=== PATIENT | female | born 1960 | race Hispanic/Latino ===

== ENCOUNTER → 2019-01-14 | Day surgery (SDC) | payer OTHER, MEDICARE ==
[2019-01-12 14:02] LABS: BASOPHILS # (AUTO) 0.1 (0.0-0.1); BASOPHILS % 0.9 % (0.0-1.0); EOSINOPHILS # (AUTO) 0.4 (0.0-0.4); EOSINOPHILS % 4.6 % (0.0-6.0); HEMATOCRIT 34.6 % (34.2-44.1); HEMOGLOBIN 10.6 g/dL (12.0-16.0); LYMPHOCYTES # (AUTO) 2.7 (1.0-3.2); LYMPHOCYTES % 35.2 % (18.0-39.1); MEAN CORPUSCULAR HEMOGLOBIN 27.8 pg (28-32); MEAN CORPUSCULAR HGB CONC 30.6 g/dL (31-35); MEAN CORPUSCULAR VOLUME 90.8 fL (81-99); MONOCYTES # (AUTO) 0.7 (0.2-0.8); MONOCYTES % 9.7 % (4.4-11.3); NEUTROPHILS # (AUTO) 3.8 (2.1-6.9); NEUTROPHILS % 49.3 % (38.7-80.0); PLATELET COUNT 215 x10e3/uL (140-360); RED BLOOD COUNT 3.81 x10e6/uL (3.6-5.1); RED CELL DISTRIBUTION WIDTH 14.8 % (11.7-14.4)
[~2019-01-14] MED LIST: CLONIDINE HCL0.2 MG PO; DIALYVITE 8000.8 M1 PO; FENTANYL CITRATE/PF 100MCG/2 ML INJ ONE; HYDRALAZINE HCL25 MG PO; METOPROLOL SUCC50 MG PO; MIDAZOLAM HCL 2 MG/2 ML VIAL ONE; NIFEDIPINE ER30 M1 PO; NOVOLIN N100 UNIT/1 SC; OMEPRAZOLE40 MG PO; PROPOFOL IV EMULSION 10 MG/ML 50 ML VIAL ONE; RENAGEL800 MG PO; SODIUM CHLORIDE 0.9% 500ML 500 ML ONE; VELTASSA8.4 GM TOP
--- OUTSIDE RECORDS SUMMARY | 2019-01-14 06:41 | XMS REPORT ---
[facility] Address Unknown Phone Unavailable Care Team Providers Care Pot Annealer Name Role Phone Unavailable Unavailable Payers Payer Name Policy Type Policy Number Effective Date Expiration Date Problems This patient has no known problems. Allergies, Adverse Reactions, Alerts Allergy Name Allergy Type Status Severity Reaction(s) Onset Date Inactive Date Treating Clinician Comments No Known Allergies DA Active U 2018-06-17 00:00:00 No Known Allergies DA Active U 2018-05-28 00:00:00 No Known Allergies DA Active U 2018-05-06 00:00:00 No Known Allergies DA Active U 2018-02-22 00:00:00 Medications This patient has no known medications. Encounters Start Date/Time End Date/Time Encounter Type Admission Type Attending [facility] Care Department Encounter ID 2018-01-19 18:06:17 Inpatient [facility] [id number] 2018-01-19 08:39:23 Inpatient [facility] [id number] 2018-07-27 00:00:00 2018-07-27 00:00:00 Outpatient [facility] [id number] 2018-06-12 00:00:00 2018-06-12 00:00:00 Outpatient [facility] [id number] 2018-04-20 15:30:50 2018-04-20 15:30:50 Outpatient [facility] [id number] 2018-04-07 13:08:52 2018-04-07 13:08:52 Outpatient [facility] [id number] 2018-04-03 00:00:00 2018-04-03 00:00:00 Outpatient [facility] [id number] 2018-04-03 00:00:00 2018-04-03 00:00:00 Outpatient [facility] [id number] 2018-04-02 00:00:00 2018-04-02 00:00:00 Outpatient [facility] [id number] 2018-03-31 00:00:00 2018-03-31 00:00:00 Outpatient [facility] [id number] 2018-03-20 00:00:00 2018-03-20 00:00:00 Outpatient [facility] [id number] 2018-03-18 00:00:00 2018-03-18 00:00:00 Outpatient [facility] [id number] 2018-03-03 00:00:00 2018-03-03 00:00:00 Outpatient [facility] [id number] 2018-02-24 00:00:00 2018-02-24 00:00:00 Outpatient [facility] [id number] 2018-02-04 00:00:00 2018-02-04 00:00:00 Outpatient [facility] [id number] 2018-01-30 08:43:09 2018-01-30 08:43:09 Outpatient [facility] [id number] 2018-01-30 00:00:00 2018-01-30 00:00:00 Outpatient [facility] [id number] 2018-01-29 00:00:00 2018-01-29 00:00:00 Outpatient [facility] [id number] 2018-01-16 11:55:25 2018-01-16 11:55:25 Inpatient [facility] [id number] 2018-01-16 08:35:46 2018-01-16 08:35:46 Outpatient [facility] [id number] 2018-01-15 16:34:09 2018-01-15 16:34:09 Emergency [facility] [id number] 2018-01-15 15:05:36 2018-01-15 15:05:36 Emergency [facility] [id number] 2018-01-13 14:46:26 2018-01-13 14:46:26 Outpatient [facility] [id number] 2017-12-22 00:00:00 2017-12-22 00:00:00 Outpatient [facility] [id number] 2017-12-19 14:20:13 2017-12-19 14:20:13 Outpatient [facility] [id number] 2017-12-19 13:28:50 2017-12-19 13:28:50 Outpatient [facility] [id number] 2017-12-17 00:00:00 2017-12-17 00:00:00 Outpatient [facility] [id number] 2017-12-16 14:54:59 2017-12-16 14:54:59 Outpatient [facility] [id number] 2017-12-16 14:18:58 2017-12-16 14:18:58 Outpatient [facility] [id number] 2017-11-18 10:26:15 2017-11-18 10:26:15 Outpatient [facility] [id number] 2017-10-31 00:00:00 2017-10-31 00:00:00 Outpatient [facility] [id number] 2017-10-28 00:00:00 2017-10-28 00:00:00 Outpatient [facility] [id number] 2017-10-27 00:00:00 2017-10-27 00:00:00 Outpatient [facility] [id number] 2017-09-25 14:27:56 2017-09-25 14:27:56 Outpatient [facility] [id number] 2017-09-19 15:11:48 2017-09-19 15:11:48 Outpatient [facility] [id number] 2017-09-19 09:04:15 2017-09-19 09:04:15 Outpatient [facility] [id number] 2017-09-18 08:38:49 2017-09-18 08:38:49 Outpatient [facility] [id number] 2017-08-08 09:21:17 2017-08-08 09:21:17 Outpatient [facility] [id number] 2017-07-31 14:14:36 2017-07-31 14:14:36 Outpatient [facility] [id number] 2017-06-27 09:22:42 2017-06-27 09:22:42 Outpatient [facility] [id number] 2017-06-27 08:14:46 2017-06-27 08:14:46 Outpatient [facility] [id number] 2017-06-10 14:19:19 2017-06-10 14:19:19 Outpatient [facility] [id number] 2017-06-05 14:20:58 2017-06-05 14:20:58 Outpatient [facility] [id number] 2017-06-02 00:00:00 2017-06-02 00:00:00 Outpatient [facility] [id number] 2017-05-29 08:36:21 2017-05-29 08:36:21 Outpatient [facility] [id number] 2017-05-21 13:29:50 2017-05-21 13:29:50 Outpatient [facility] [id number] 2017-05-07 14:37:44 2017-05-07 14:37:44 Outpatient [facility] [id number] 2017-05-02 08:14:53 2017-05-02 08:14:53 Outpatient [facility] [id number] 2017-04-30 14:04:48 2017-04-30 14:04:48 Outpatient [facility] [id number] 2017-04-14 13:23:22 2017-04-14 13:23:22 Outpatient [facility] [id number] 2017-04-10 14:13:18 2017-04-10 14:13:18 Outpatient [facility] [id number] 2017-04-10 13:50:55 2017-04-10 13:50:55 Outpatient [facility] [id number] 2017-04-07 09:49:13 2017-04-07 09:49:13 Outpatient [facility] [id number] 2017-03-26 13:20:08 2017-03-26 13:20:08 Outpatient [facility] [id number] 2017-03-14 13:55:52 2017-03-14 13:55:52 Outpatient [facility] [id number] 2017-03-11 14:46:54 2017-03-11 14:46:54 Outpatient [facility] [id number] 2017-03-07 07:55:02 2017-03-07 07:55:02 Outpatient [facility] [id number] 2017-03-04 07:45:38 2017-03-04 07:45:38 Outpatient [facility] [id number] 2017-02-28 13:06:31 2017-02-28 13:06:31 Outpatient [facility] [id number] 2017-02-27 00:00:00 2017-02-27 00:00:00 Outpatient [facility] [id number] 2017-02-27 00:00:00 2017-02-27 00:00:00 Outpatient [facility] [id number] 2017-02-19 14:08:09 2017-02-19 14:08:09 Outpatient [facility] [id number] 2017-02-17 08:49:12 2017-02-17 08:49:12 Outpatient [facility] [id number] 2017-02-17 00:00:00 2017-02-17 00:00:00 Outpatient [facility] [id number] 2017-02-13 13:17:06 2017-02-13 13:17:06 Outpatient [facility] [id number] 2017-02-11 14:51:18 2017-02-11 14:51:18 Outpatient [facility] [id number] 2017-02-07 15:07:42 2017-02-07 15:07:42 Outpatient [facility] [id number] 2017-02-05 00:00:00 2017-02-05 00:00:00 Outpatient [facility] [id number] 2017-01-31 07:42:47 2017-01-31 07:42:47 Outpatient [facility] [id number] 2017-01-31 00:00:00 2017-01-31 00:00:00 Outpatient [facility] [id number] 2017-01-22 14:48:14 2017-01-22 14:48:14 Outpatient [facility] [id number] 2017-01-22 13:10:28 2017-01-22 13:10:28 Outpatient [facility] [id number] 2017-01-21 00:00:00 2017-01-21 00:00:00 Outpatient [facility] [id number] 2017-01-20 07:29:54 2017-01-20 07:29:54 Outpatient [facility] [id number] 2017-01-16 13:54:38 2017-01-16 13:54:38 Outpatient [facility] [id number] 2017-01-15 00:00:00 2017-01-15 00:00:00 Outpatient [facility] [id number] 2017-01-15 00:00:00 2017-01-15 00:00:00 Outpatient [facility] [id number] 2017-01-10 08:06:22 2017-01-10 08:06:22 Outpatient [facility] [id number] 2017-01-07 13:10:25 2017-01-07 13:10:25 Outpatient [facility] [id number] 2017-01-01 10:02:42 2017-01-01 10:02:42 Outpatient [facility] [id number] 2016-12-26 13:47:36 2016-12-26 13:47:36 Outpatient [facility] [id number] 2016-12-20 15:01:38 2016-12-20 15:01:38 Outpatient [facility] [id number] 2016-12-20 00:00:00 2016-12-20 00:00:00 Outpatient [facility] [id number] 2016-12-18 07:06:47 2016-12-18 07:06:47 Outpatient [facility] [id number] 2016-12-17 12:45:10 2016-12-17 12:45:10 Outpatient [facility] [id number] 2016-12-12 14:05:47 2016-12-12 14:05:47 Outpatient [facility] [id number] 2016-12-06 14:39:08 2016-12-06 14:39:08 Outpatient [facility] [id number] 2016-12-05 00:00:00 2016-12-05 00:00:00 Outpatient [facility] [id number] 2016-12-04 10:39:56 2016-12-04 10:39:56 Outpatient [facility] [id number] 2016-12-04 00:00:00 2016-12-04 00:00:00 Outpatient [facility] [id number] 2016-11-29 08:33:29 2016-11-29 08:33:29 Outpatient [facility] [id number] 2016-11-28 14:17:17 2016-11-28 14:17:17 Outpatient [facility] [id number] 2016-11-28 13:50:33 2016-11-28 13:50:33 Outpatient [facility] [id number] 2016-11-27 13:51:01 2016-11-27 13:51:01 Outpatient [facility] [id number] 2016-11-25 11:23:45 2016-11-25 11:23:45 Outpatient [facility] [id number] 2016-11-21 16:25:01 2016-11-21 16:25:01 Outpatient [facility] [id number] 2016-11-21 15:09:32 2016-11-21 15:09:32 Outpatient [facility] [id number] 2016-11-21 10:06:31 2016-11-21 10:06:31 Outpatient [facility] [id number] 2016-11-20 13:59:55 2016-11-20 13:59:55 Outpatient [facility] [id number] 2016-11-15 13:34:16 2016-11-15 13:34:16 Outpatient [facility] [id number] 2016-11-15 11:35:13 2016-11-15 11:35:13 Outpatient [facility] [id number] 2016-11-15 09:57:45 2016-11-15 09:57:45 Outpatient [facility] [id number] 2016-11-14 07:52:23 2016-11-14 07:52:23 Outpatient [facility] [id number] 2016-11-13 13:47:05 2016-11-13 13:47:05 Outpatient [facility] [id number] 2016-11-06 13:57:35 2016-11-06 13:57:35 Outpatient [facility] [id number] 2016-11-05 00:00:00 2016-11-05 00:00:00 Outpatient [facility] [id number] 2016-11-05 00:00:00 2016-11-05 00:00:00 Outpatient [facility] [id number] 2016-10-30 15:13:07 2016-10-30 15:13:07 Outpatient [facility] [id number] 2016-10-17 07:51:37 2016-10-17 07:51:37 Outpatient [facility] [id number] 2016-10-17 07:50:49 2016-10-17 07:50:49 Outpatient [facility] [id number] 2016-10-11 00:00:00 2016-10-11 00:00:00 Outpatient [facility] [id number] 2016-10-10 00:00:00 2016-10-10 00:00:00 Outpatient [facility] [id number] 2016-10-07 00:00:00 2016-10-07 00:00:00 Outpatient [facility] [id number] 2016-10-03 08:17:33 2016-10-03 08:17:33 Outpatient [facility] [id number] 2016-10-03 00:00:00 2016-10-03 00:00:00 Outpatient [facility] [id number] 2016-09-30 00:00:00 2016-09-30 00:00:00 Outpatient [facility] [id number] 2016-09-27 08:27:26 2016-09-27 08:27:26 Outpatient [facility] [id number] 2016-09-20 10:01:17 2016-09-20 10:01:17 Outpatient [facility] [id number] 2016-09-20 00:00:00 2016-09-20 00:00:00 Outpatient [facility] [id number] 2016-09-19 09:43:36 2016-09-19 09:43:36 Outpatient [facility] [id number] 2016-09-18 15:29:44 2016-09-18 15:29:44 Outpatient [facility] [id number] 2016-09-18 00:00:00 2016-09-18 00:00:00 Outpatient [facility] [id number] 2016-09-16 07:44:47 2016-09-16 07:44:47 Outpatient [facility] [id number] 2016-09-13 07:45:17 2016-09-13 07:45:17 Outpatient [facility] [id number] 2016-09-13 00:00:00 2016-09-13 00:00:00 Outpatient [facility] [id number] 2016-09-12 07:59:05 2016-09-12 07:59:05 Outpatient [facility] [id number] 2016-09-04 15:00:24 2016-09-04 15:00:24 Outpatient [facility] [id number] 2016-09-03 01:03:30 2016-09-03 01:03:30 Emergency [facility] [id number] 2016-09-02 21:43:10 2016-09-02 21:43:10 Emergency [facility] [id number] 2016-08-30 14:18:27 2016-08-30 14:18:27 Outpatient [facility] [id number] 2016-08-29 08:03:14 2016-08-29 08:03:14 Outpatient [facility] [id number] 2016-08-27 13:01:42 2016-08-27 13:01:42 Outpatient [facility] [id number] 2016-08-27 12:29:37 2016-08-27 12:29:37 Outpatient [facility] [id number] 2016-08-26 00:00:00 2016-08-26 00:00:00 Outpatient [facility] [id number] 2016-08-23 10:06:27 2016-08-23 10:06:27 Outpatient [facility] [id number] 2016-08-16 13:05:33 2016-08-16 13:05:33 Outpatient [facility] [id number] 2016-08-16 10:28:06 2016-08-16 10:28:06 Outpatient [facility] [id number] 2016-08-16 07:30:58 2016-08-16 07:30:58 Outpatient [facility] [id number] 2016-08-16 00:00:00 2016-08-16 00:00:00 Outpatient [facility] [id number] 2016-08-16 00:00:00 2016-08-16 00:00:00 Outpatient [facility] [id number] 2016-08-16 00:00:00 2016-08-16 00:00:00 Outpatient [facility] [id number] 2016-08-12 13:17:47 2016-08-12 13:17:47 Outpatient [facility] [id number] 2016-08-09 10:17:27 2016-08-09 10:17:27 Outpatient [facility] [id number] 2016-08-09 10:11:40 2016-08-09 10:11:40 Outpatient [facility] [id number] 2016-08-08 14:43:00 2016-08-08 14:43:00 Outpatient [facility] [id number] 2016-08-08 14:04:37 2016-08-08 14:04:37 Outpatient [facility] [id number] 2016-08-08 12:59:16 2016-08-08 12:59:16 Outpatient [facility] [id number] 2016-08-02 10:03:38 2016-08-02 10:03:38 Outpatient [facility] [id number] 2016-08-02 08:30:26 2016-08-02 08:30:26 Outpatient [facility] [id number] 2016-07-29 15:33:46 2016-07-29 15:33:46 Outpatient [facility] [id number] 2016-07-26 00:00:00 2016-07-26 00:00:00 Outpatient [facility] [id number] 2016-07-24 14:45:40 2016-07-24 14:45:40 Outpatient [facility] [id number] 2016-07-22 10:04:58 2016-07-22 10:04:58 Outpatient [facility] [id number] 2016-07-19 13:54:56 2016-07-19 13:54:56 Outpatient [facility] [id number] 2016-07-17 13:04:23 2016-07-17 13:04:23 Outpatient [facility] [id number] 2016-07-15 13:36:53 2016-07-15 13:36:53 Outpatient [facility] [id number] 2016-07-12 12:45:37 2016-07-12 12:45:37 Outpatient [facility] [id number] 2016-07-12 08:36:35 2016-07-12 08:36:35 Outpatient [facility] [id number] 2016-07-09 08:32:08 2016-07-09 08:32:08 Outpatient [facility] [id number] 2016-07-03 13:34:44 2016-07-03 13:34:44 Outpatient [facility] [id number] 2016-07-01 13:19:38 2016-07-01 13:19:38 Outpatient [facility] [id number] 2016-06-28 08:49:20 2016-06-28 08:49:20 Outpatient [facility] [id number] 2016-06-28 07:06:15 2016-06-28 07:06:15 Outpatient [facility] [id number] Results Test Description Test Time Test Comments Text Results Atomic Results Result Comments MR, BRAIN, WITHOUT CONTRAST 2018-07-23 12:55:00 FINAL REPORT MR, BRAIN, WITHOUT CONTRAST INDICATION: RIGHT TRIGEMINAL NEURALGIA TECHNIQUE: Multiplanar, multisequence MR imaging of the brain was obtained without administration of gadolinium contrast. Thin section T2 weighted imaging through the IACs at 1 mm slice thickness. Coronal and sagittal thin section pre and post contrast imaging of the IACs COMPARISON: None FINDINGS:Internal auditory canals:There is no space-occupying lesion along the cerebellopontine angles or adjacent to the cranial nerve complexes appear in within the limits of noncontrast examination, the trigeminal nerve complexes are symmetrical. 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 Internal anatomic abnormalities are beyond resolution of the current examination. Of note, there is mild expansion of the hypoglossal canal on the right, suggesting pseudomeningocele. Brain parenchyma:Mild global volume loss is present. Scattered, mild T2 hyperintensities in the deep white matter suggest early microvascular change. No space-occupying lesion is present. No diffusion restriction or midline shift is present. There is no intracranial hemorrhage. The ventricular system is normal in size and configuration. Remaining structures:No abnormality of the calvarium is present. The included paranasal sinuses, mastoid air cells, and orbits are within normal limits. IMPRESSION: No mass lesion is present in the cerebellopontine angles or adjacent regions. The A small meningocele is present adjacent to and communicating with the right Meckel's cave, of indeterminant clinical significance. 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 Signed: JR Abbott Robert MDReport Verified Date/Time: 07/23/2018 12:55:22 Reading Location: [facility] C013 Neuro Reading Room C METABOLIC PANEL 2018-06-17 22:30:00 SODIUM (test code=NA) 133 mmol/L 136-145 POTASSIUM (test code=K) 4.3 mmol/L 3.5-5.1 CHLORIDE (test code=CL) 95.0 mmol/L 98-107 CARBON DIOXIDE (test code=CO2) 33.0 mmol/L 21-32 ANION GAP (test code=GAP) 9.3 10-20 GLUCOSE (test code=GLU) 202 mg/dL 74-106 BLOOD UREA NITROGEN (test code=BUN) 30 mg/dL 7-18 GLOMERULAR FILTRATION RATE (test code=GFR) 11 mL/min >=60 Estimated GFR by using Modified MDRD formula.Chronic kidney disease is defined as either kidney damageor GFR <60 mL/min/1.73 m2 for >3 months. CREATININE (test code=CREAT) 4.30 mg/dL 0.55-1.02 Note change in reference range due to change in reagent. BUN/CREATININE RATIO (test code=BUN/CREA) 7.0 10-20 CALCIUM (test code=CA) 8.6 mg/dL 8.5-10.1 [id number] 22:30:00* Test Item Value Reference Range Comments MAGNESIUM (test code=MAG) 2.5 mg/dL 1.8-2.4 BASIC METABOLIC [id number] 22:26:00* Test Item Value Reference Range Comments SODIUM (test code=NA) 133 mmol/L 136-145 POTASSIUM (test code=K) 4.3 mmol/L 3.5-5.1 CHLORIDE (test code=CL) 95.0 mmol/L 98-107 CARBON DIOXIDE (test code=CO2) mmol/L 21-32 ANION GAP (test code=GAP) 10-20 GLUCOSE (test code=GLU) mg/dL 74-106 BLOOD UREA NITROGEN (test code=BUN) mg/dL 7-18 GLOMERULAR FILTRATION RATE (test code=GFR) mL/min >=60 CREATININE (test code=CREAT) mg/dL 0.55-1.02 BUN/CREATININE RATIO (test code=BUN/CREA) 10-20 CALCIUM (test code=CA) mg/dL 8.5-10.1 [id number] 22:26:00* Test Item Value Reference Range Comments MAGNESIUM (test code=MAG) mg/dL 1.8-2.4 CBC W/AUTO [id number] 22:14:00* Test Item Value Reference Range Comments WHITE BLOOD CELL (test code=WBC) 6.3 K/mm3 4.5-12.5 RED BLOOD CELL (test code=RBC) 4.34 mill/mm3 3.7-5.2 HEMOGLOBIN (test code=HGB) 12.6 gram/dL 11.5-15.5 HEMATOCRIT (test code=HCT) 39.4 % 36.0-46.0 MEAN CELL VOLUME (test code=MCV) 90.8 fL 80-98 MEAN CELL HGB (test code=MCH) 29.0 picogram 27.0-33.0 MEAN CELL HGB CONCETRATION (test code=MCHC) 32.0 gram/dL 33.0-36.0 RED CELL DISTRIBUTION WIDTH (test code=RDW) 14.4 % 11.6-16.2 RED CELL DISTRIBUTION WIDTH SD (test code=RDW-SD) 48.1 fL 37.0-51.0 PLATELET COUNT (test code=PLT) 229 K/mm3 150-450 MEAN PLATELET VOLUME (test code=MPV) 9.7 fL 6.7-11.0 NEUTROPHIL % (test code=NT%) 46.4 % 39.0-69.0 IMMATURE GRANULOCYTE % (test code=IG%) 0.8 % 0.0-5.0 LYMPHOCYTE % (test code=LY%) 39.6 % 25.0-55.0 MONOCYTE % (test code=MO%) 8.4 % 0.0-10.0 EOSINOPHIL % (test code=EO%) 4.0 % 0.0-5.0 BASOPHIL % (test code=BA%) 0.8 % 0.0-1.0 NUCLEATED RBC % (test code=NRBC%) 0.0 % 0-0 NEUTROPHIL # (test code=NT#) 2.93 K/mm3 1.8-7.7 IMMATURE GRANULOCYTE # (test code=IG#) 0.05 x10 3/uL 0-0.03 LYMPHOCYTE # (test code=LY#) 2.50 K/mm3 1.0-5.0 MONOCYTE # (test code=MO#) 0.53 K/mm3 0-0.8 EOSINOPHIL # (test code=EO#) 0.25 K/mm3 0.0-0.5 BASOPHIL # (test code=BA#) 0.05 K/mm3 0.0-0.2 NUCLEATED RBC # (test code=NRBC#) 0.00 K/mm3 0.0-0.1 MANUAL DIFF REQUIRED (test code=MDIFF) NO CBC W/AUTO [id number] 22:12:00* Test Item Value Reference Range Comments WHITE BLOOD CELL (test code=WBC) K/mm3 4.5-12.5 RED BLOOD CELL (test code=RBC) mill/mm3 3.7-5.2 HEMOGLOBIN (test code=HGB) 12.6 gram/dL 11.5-15.5 HEMATOCRIT (test code=HCT) 39.4 % 36.0-46.0 MEAN CELL VOLUME (test code=MCV) fL 80-98 MEAN CELL HGB (test code=MCH) picogram 27.0-33.0 MEAN CELL HGB CONCETRATION (test code=MCHC) gram/dL 33.0-36.0 RED CELL DISTRIBUTION WIDTH (test code=RDW) % 11.6-16.2 RED CELL DISTRIBUTION WIDTH SD (test code=RDW-SD) fL 37.0-51.0 PLATELET COUNT (test code=PLT) K/mm3 150-450 MEAN PLATELET VOLUME (test code=MPV) fL 6.7-11.0 NEUTROPHIL % (test code=NT%) % 39.0-69.0 IMMATURE GRANULOCYTE % (test code=IG%) % 0.0-5.0 LYMPHOCYTE % (test code=LY%) % 25.0-55.0 MONOCYTE % (test code=MO%) % 0.0-10.0 EOSINOPHIL % (test code=EO%) % 0.0-5.0 BASOPHIL % (test code=BA%) % 0.0-1.0 NEUTROPHIL # (test code=NT#) K/mm3 1.8-7.7 LYMPHOCYTE # (test code=LY#) K/mm3 1.0-5.0 MONOCYTE # (test code=MO#) K/mm3 0-0.8 EOSINOPHIL # (test code=EO#) K/mm3 0.0-0.5 BASOPHIL # (test code=BA#) K/mm3 0.0-0.2 [id number] 21:11:00* Test Item Value Reference Range Comments GLUBED (test code=GLUBED) 162 mg/dL 74-106 Performed by certified charm filter operator helper at [facility] URINALYSIS [id number] 20:58:00* Test Item Value Reference Range Comments UA COLOR (test code=COLU) YELLOW YELLOW UA APPEARANCE (test code=APPU) SLIGHTLY CLOUDY CLEAR UA GLUCOSE DIPSTICK (test code=DGLUU) >=500 mg/dL NEGATIVE UA BILIRUBIN DIPSTICK (test code=BILU) NEGATIVE mg/dL NEGATIVE UA KETONE DIPSTICK (test code=KETU) NEGATIVE mg/dL NEGATIVE UA SPECIFIC GRAVITY (test code=SGU) 1.020 1.001-1.035 UA BLOOD DIPSTICK (test code=SOILA) Negative mg/dL NEGATIVE UA PH DIPSTICK (test code=RALEIGH) 9.0 5.0-8.0 UA PROTEIN DIPSTICK (test code=PROU) >500 (3+) mg/dL NEGATIVE UA UROBILINIOGEN DIPSTICK (test code=URO) NEGATIVE mg/dL NEGATIVE UA NITRITE DIPSTICK (test code=LISA) NEGATIVE NEGATIVE UA LEUKOCYTE ESTERASE W REFLEX (test code=LEUUR) NEGATIVE Olamide/uL NEGATIVE UA WBC (test code=WBCU) 11-20 per HPF 0-5 UA RBC (test code=RBCU) 6-10 #/HPF 0-5 UA EPITHELIAL CELLS (test code=EPIU) FEW per HPF FEW UA BACTERIA (test code=BACU) FEW #/HPF NONE UA RENAL CELLS (test code=FRANC) 0-2 #/HPF 0-5 Urine Source? Clean CatchHEPATIC FUNCTION [id number] 20:09:00* Test Item Value Reference Range Comments TOTAL PROTEIN (test code=PROT) 7.0 gram/dL 6.4-8.2 ALBUMIN (test code=ALB) 3.0 g/dL 3.4-5.0 GLOBULIN (test code=GLOB) 4.0 gram/dL 2.7-4.2 ALBUMIN/GLOBULIN RATIO (test code=A/G) 0.8 0.75-1.50 BILIRUBIN TOTAL (test code=BILT) 0.30 mg/dL 0.0-1.0 BILIRUBIN DIRECT (test code=BILD) 0.06 mg/dL 0.0-0.20 SGOT/AST (test code=AST) 22 IUnit/L 15-37 SGPT/ALT (test code=ALT) 15 IUnit/L 12-78 ALKALINE PHOSPHATASE TOTAL (test code=ALKP) 198 IUnit/L 45-117 Note change in reference range due to change in reagent. THYROID STIMULATING [id number] 20:09:00* Test Item Value Reference Range Comments THYROID STIMULATING HORMONE (test code=TSH) 1.260 uIU/mL 0.36-3.74 TSH REFERENCE RANGES: EUTHYROID: 0.35 - 4.3 mIU/mL HYPO : > 5.5 mIU/mL HYPER : < 0.35 mIU/mL - XR CHEST 1 [id number] 19:48:00 FAX: Michael Ellis MD [phone] [place]: St: [facility] FAX: MARYA HOUSTON MD Name: JUSTIN BURRIS [facility] : 1960 Age/S: 58/F [address] Unit #: [id number] Loc: [place] [address] Phys: MARYA HOUSTNO MD Acct: [id number] Dis Date: Status: REG ER PHONE #: [phone] Exam Date: 05/28/2018 1936 FAX #: [phone] Reason: hypoglycemia EXAMS: CPT CODE: [id number] XR CHEST 1 V [id number] REASON FOR EXAM: hypoglycemia EXAM ORDER DATE: 05/28/2018 7:17 PM Ordering Rohit: MARYA HOUSTON MD PROCEDURE: - XR CHEST 1 V COMPARISON: 05/06/2018 FINDINGS: Portable AP frontal view of the chest obtained at 7:37 PM shows clear lungs without evidence of consolidation. There is no evidence of effusion. The heart size is within normal limits. Pulmonary vasculatures are unremarkable. Stable appearance of the right IJ tunneled dialysis catheter. IMPRESSION: No active disease. at 1948 Reported and signed by: Immanuel Hawk M.D. CC: Michael Romo MD; MARYA HOUSTON MD Technologist: RT Luly(R Trnscrd Date/Time/By: 05/28/2018 (1947) : By: HarrisonVTL Orig Print D/T: S: 05/28/2018 (1950) PAGE 1 Signed Report [id number] 19:30:00* Test Item Value Reference Range Comments GLUBED (test code=GLUBED) 53 mg/dL 74-106 Performed by certified charm filter operator helper at [facility] - CT HEAD/BRAIN W/O [id number] 18:59:00 Name: JUSTIN BURRIS [facility] : 1960 Age/S: 58 / F [address] [facility] Unit #: [id number] Loc: JESSICA [place] [address] Phys: MARYA HOUSTON MD Acct: [id number] Dis Date: Status: REG ER PHONE #: [phone] Exam Date: 05/28/2018 1855 FAX #: [phone] Reason: new persistent DEWITT w/o DEWITT Hx EXAMS: CPT CODE: [id number] CT HEAD/BRAIN W/O CONT [id number] REASON FOR EXAM: new persistent DEWITT w/o DEWITT Hx EXAM ORDER DATE: 05/28/2018 6:36 PM Ordering Rohit: MARYA HOUSTON MD PROCEDURE: - CT HEAD/BRAIN W/O CONT COMPARISON: FINDINGS: CT images of the brain were obtained without IV contrast. Dose modulation, iterative reconstruction, and/or weight based adjustment of the MA/KV was utilized to reduce the radiation dose to as low as reasonably achievable. The brain parenchyma is within normal limits. The ulloa-white matter delineation is unremarkable. The ventricles, cisterns, and sulci are unremarkable. There is no evidence of hemorrhage, mass, mass effect. There is no evidence of acute or old infarct. The calvarium is intact. I MPRESSION: Unremarkable brain. at 1859 Reported and signed by: Immanuel Hawk M.D. CC: Michael Romo MD; MARYA HOUSTON MD Technologist:Augie Donis RT(R)(CT) CTDI: DLP: T rnscb Date/Time: 05/28/2018 (1858) t.SDR.VTL Orig Print D /T: S: 05/28/2018 (1901) CTDI: DLP: PAGE 1 Signed Report CBC W/AUTO [id number] 18:49:00* Test Item Value Reference Range Comments WHITE BLOOD CELL (test code=WBC) 5.4 K/mm3 4.5-12.5 RED BLOOD CELL (test code=RBC) 4.20 mill/mm3 3.7-5.2 HEMOGLOBIN (test code=HGB) 11.5 gram/dL 11.5-15.5 HEMATOCRIT (test code=HCT) 39.2 % 36.0-46.0 MEAN CELL VOLUME (test code=MCV) 93.3 fL 80-98 MEAN CELL HGB (test code=MCH) 27.4 picogram 27.0-33.0 MEAN CELL HGB CONCETRATION (test code=MCHC) 29.3 gram/dL 33.0-36.0 RED CELL DISTRIBUTION WIDTH (test code=RDW) 14.4 % 11.6-16.2 RED CELL DISTRIBUTION WIDTH SD (test code=RDW-SD) 49.4 fL 37.0-51.0 PLATELET COUNT (test code=PLT) 204 K/mm3 150-450 MEAN PLATELET VOLUME (test code=MPV) 9.3 fL 6.7-11.0 NEUTROPHIL % (test code=NT%) 47.6 % 39.0-69.0 IMMATURE GRANULOCYTE % (test code=IG%) 0.4 % 0.0-5.0 LYMPHOCYTE % (test code=LY%) 33.3 % 25.0-55.0 MONOCYTE % (test code=MO%) 12.7 % 0.0-10.0 EOSINOPHIL % (test code=EO%) 5.3 % 0.0-5.0 BASOPHIL % (test code=BA%) 0.7 % 0.0-1.0 NUCLEATED RBC % (test code=NRBC%) 0.0 % 0-0 NEUTROPHIL # (test code=NT#) 2.59 K/mm3 1.8-7.7 IMMATURE GRANULOCYTE # (test code=IG#) 0.02 x10 3/uL 0-0.03 LYMPHOCYTE # (test code=LY#) 1.81 K/mm3 1.0-5.0 MONOCYTE # (test code=MO#) 0.69 K/mm3 0-0.8 EOSINOPHIL # (test code=EO#) 0.29 K/mm3 0.0-0.5 BASOPHIL # (test code=BA#) 0.04 K/mm3 0.0-0.2 NUCLEATED RBC # (test code=NRBC#) 0.00 K/mm3 0.0-0.1 MANUAL DIFF REQUIRED (test code=MDIFF) NO, ONLY SCAN NEEDED DIFFERENTIAL [id number] 18:49:00* Test Item Value Reference Range Comments STAIN ACCEPTABILITY (test code=STN ACCEPTABLE) STAIN ACCEPTABLE MORPHOLOGY COMMENT (test code=MOC) NORMAL PLATELET ESTIMATE (test code=PLTEST) ADEQUATE PLATELET MORPHOLOGY (test code=PLTMORPH) NORMAL BASIC METABOLIC [id number] 18:19:00* Test Item Value Reference Range Comments SODIUM (test code=NA) 138 mmol/L 136-145 POTASSIUM (test code=K) 4.7 mmol/L 3.5-5.1 CHLORIDE (test code=CL) 99.0 mmol/L 98-107 CARBON DIOXIDE (test code=CO2) 33.0 mmol/L 21-32 ANION GAP (test code=GAP) 10.7 10-20 GLUCOSE (test code=GLU) 85 mg/dL 74-106 BLOOD UREA NITROGEN (test code=BUN) 42 mg/dL 7-18 GLOMERULAR FILTRATION RATE (test code=GFR) 8 mL/min >=60 Estimated GFR by using Modified MDRD formula.Chronic kidney disease is defined as either kidney damageor GFR <60 mL/min/1.73 m2 for >3 months. CREATININE (test code=CREAT) 5.50 mg/dL 0.55-1.02 Note change in reference range due to change in reagent. BUN/CREATININE RATIO (test code=BUN/CREA) 7.6 10-20 CALCIUM (test code=CA) 8.3 mg/dL 8.5-10.1 [id number] 18:19:00* Test Item Value Reference Range Comments TROPONIN-I (test code=TROPI) <0.015 ng/mL 0-0.045 BASIC METABOLIC [id number] 18:10:00* Test Item Value Reference Range Comments SODIUM (test code=NA) 138 mmol/L 136-145 POTASSIUM (test code=K) 4.7 mmol/L 3.5-5.1 CHLORIDE (test code=CL) 99.0 mmol/L 98-107 CARBON DIOXIDE (test code=CO2) mmol/L 21-32 ANION GAP (test code=GAP) 10-20 GLUCOSE (test code=GLU) mg/dL 74-106 BLOOD UREA NITROGEN (test code=BUN) mg/dL 7-18 GLOMERULAR FILTRATION RATE (test code=GFR) mL/min >=60 CREATININE (test code=CREAT) mg/dL 0.55-1.02 BUN/CREATININE RATIO (test code=BUN/CREA) 10-20 CALCIUM (test code=CA) mg/dL 8.5-10.1 [id number] 18:10:00* Test Item Value Reference Range Comments TROPONIN-I (test code=TROPI) ng/mL 0-0.045 BASIC METABOLIC [id number] 18:10:00* Test Item Value Reference Range Comments SODIUM (test code=NA) 138 mmol/L 136-145 POTASSIUM (test code=K) 4.7 mmol/L 3.5-5.1 CHLORIDE (test code=CL) 99.0 mmol/L 98-107 CARBON DIOXIDE (test code=CO2) mmol/L 21-32 ANION GAP (test code=GAP) 10-20 GLUCOSE (test code=GLU) mg/dL 74-106 BLOOD UREA NITROGEN (test code=BUN) mg/dL 7-18 GLOMERULAR FILTRATION RATE (test code=GFR) mL/min >=60 CREATININE (test code=CREAT) mg/dL 0.55-1.02 BUN/CREATININE RATIO (test code=BUN/CREA) 10-20 CALCIUM (test code=CA) 8.3 mg/dL 8.5-10.1 [id number] 18:10:00* Test Item Value Reference Range Comments TROPONIN-I (test code=TROPI) ng/mL 0-0.045 CBC W/AUTO [id number] 18:01:00* Test Item Value Reference Range Comments WHITE BLOOD CELL (test code=WBC) 5.4 K/mm3 4.5-12.5 RED BLOOD CELL (test code=RBC) 4.20 mill/mm3 3.7-5.2 HEMOGLOBIN (test code=HGB) 11.5 gram/dL 11.5-15.5 HEMATOCRIT (test code=HCT) 39.2 % 36.0-46.0 MEAN CELL VOLUME (test code=MCV) 93.3 fL 80-98 MEAN CELL HGB (test code=MCH) 27.4 picogram 27.0-33.0 MEAN CELL HGB CONCETRATION (test code=MCHC) 29.3 gram/dL 33.0-36.0 RED CELL DISTRIBUTION WIDTH (test code=RDW) 14.4 % 11.6-16.2 RED CELL DISTRIBUTION WIDTH SD (test code=RDW-SD) 49.4 fL 37.0-51.0 PLATELET COUNT (test code=PLT) 204 K/mm3 150-450 MEAN PLATELET VOLUME (test code=MPV) 9.3 fL 6.7-11.0 NEUTROPHIL % (test code=NT%) 47.6 % 39.0-69.0 IMMATURE GRANULOCYTE % (test code=IG%) 0.4 % 0.0-5.0 LYMPHOCYTE % (test code=LY%) 33.3 % 25.0-55.0 MONOCYTE % (test code=MO%) 12.7 % 0.0-10.0 EOSINOPHIL % (test code=EO%) 5.3 % 0.0-5.0 BASOPHIL % (test code=BA%) 0.7 % 0.0-1.0 NUCLEATED RBC % (test code=NRBC%) 0.0 % 0-0 NEUTROPHIL # (test code=NT#) 2.59 K/mm3 1.8-7.7 IMMATURE GRANULOCYTE # (test code=IG#) 0.02 x10 3/uL 0-0.03 LYMPHOCYTE # (test code=LY#) 1.81 K/mm3 1.0-5.0 MONOCYTE # (test code=MO#) 0.69 K/mm3 0-0.8 EOSINOPHIL # (test code=EO#) 0.29 K/mm3 0.0-0.5 BASOPHIL # (test code=BA#) 0.04 K/mm3 0.0-0.2 NUCLEATED RBC # (test code=NRBC#) 0.00 K/mm3 0.0-0.1 MANUAL DIFF REQUIRED (test code=MDIFF) NO, ONLY SCAN NEEDED DIFFERENTIAL [id number] 18:01:00* Test Item Value Reference Range Comments STAIN ACCEPTABILITY (test code=STN ACCEPTABLE) CABOT RINGS (test code=CAB) MORPHOLOGY COMMENT (test code=MOC) PLATELET ESTIMATE (test code=PLTEST) PLATELET MORPHOLOGY (test code=PLTMORPH) CBC W/AUTO [id number] 18:01:00* Test Item Value Reference Range Comments WHITE BLOOD CELL (test code=WBC) 5.4 K/mm3 4.5-12.5 RED BLOOD CELL (test code=RBC) 4.20 mill/mm3 3.7-5.2 HEMOGLOBIN (test code=HGB) 11.5 gram/dL 11.5-15.5 HEMATOCRIT (test code=HCT) 39.2 % 36.0-46.0 MEAN CELL VOLUME (test code=MCV) 93.3 fL 80-98 MEAN CELL HGB (test code=MCH) 27.4 picogram 27.0-33.0 MEAN CELL HGB CONCETRATION (test code=MCHC) 29.3 gram/dL 33.0-36.0 RED CELL DISTRIBUTION WIDTH (test code=RDW) 14.4 % 11.6-16.2 RED CELL DISTRIBUTION WIDTH SD (test code=RDW-SD) 49.4 fL 37.0-51.0 PLATELET COUNT (test code=PLT) 204 K/mm3 150-450 MEAN PLATELET VOLUME (test code=MPV) 9.3 fL 6.7-11.0 NEUTROPHIL % (test code=NT%) 47.6 % 39.0-69.0 IMMATURE GRANULOCYTE % (test code=IG%) 0.4 % 0.0-5.0 LYMPHOCYTE % (test code=LY%) 33.3 % 25.0-55.0 MONOCYTE % (test code=MO%) 12.7 % 0.0-10.0 EOSINOPHIL % (test code=EO%) 5.3 % 0.0-5.0 BASOPHIL % (test code=BA%) 0.7 % 0.0-1.0 NUCLEATED RBC % (test code=NRBC%) 0.0 % 0-0 NEUTROPHIL # (test code=NT#) 2.59 K/mm3 1.8-7.7 IMMATURE GRANULOCYTE # (test code=IG#) 0.02 x10 3/uL 0-0.03 LYMPHOCYTE # (test code=LY#) 1.81 K/mm3 1.0-5.0 MONOCYTE # (test code=MO#) 0.69 K/mm3 0-0.8 EOSINOPHIL # (test code=EO#) 0.29 K/mm3 0.0-0.5 BASOPHIL # (test code=BA#) 0.04 K/mm3 0.0-0.2 NUCLEATED RBC # (test code=NRBC#) 0.00 K/mm3 0.0-0.1 MANUAL DIFF REQUIRED (test code=MDIFF) NO, ONLY SCAN NEEDED DIFFERENTIAL [id number] 18:01:00* Test Item Value Reference Range Comments STAIN ACCEPTABILITY (test code=STN ACCEPTABLE) MORPHOLOGY COMMENT (test code=MOC) PLATELET ESTIMATE (test code=PLTEST) PLATELET MORPHOLOGY (test code=PLTMORPH) CBC W/AUTO [id number] 18:01:00* Test Item Value Reference Range Comments WHITE BLOOD CELL (test code=WBC) 5.4 K/mm3 4.5-12.5 RED BLOOD CELL (test code=RBC) 4.20 mill/mm3 3.7-5.2 HEMOGLOBIN (test code=HGB) 11.5 gram/dL 11.5-15.5 HEMATOCRIT (test code=HCT) 39.2 % 36.0-46.0 MEAN CELL VOLUME (test code=MCV) 93.3 fL 80-98 MEAN CELL HGB (test code=MCH) 27.4 picogram 27.0-33.0 MEAN CELL HGB CONCETRATION (test code=MCHC) 29.3 gram/dL 33.0-36.0 RED CELL DISTRIBUTION WIDTH (test code=RDW) 14.4 % 11.6-16.2 RED CELL DISTRIBUTION WIDTH SD (test code=RDW-SD) 49.4 fL 37.0-51.0 PLATELET COUNT (test code=PLT) 204 K/mm3 150-450 MEAN PLATELET VOLUME (test code=MPV) 9.3 fL 6.7-11.0 NEUTROPHIL % (test code=NT%) 47.6 % 39.0-69.0 IMMATURE GRANULOCYTE % (test code=IG%) 0.4 % 0.0-5.0 LYMPHOCYTE % (test code=LY%) 33.3 % 25.0-55.0 MONOCYTE % (test code=MO%) 12.7 % 0.0-10.0 EOSINOPHIL % (test code=EO%) 5.3 % 0.0-5.0 BASOPHIL % (test code=BA%) 0.7 % 0.0-1.0 NUCLEATED RBC % (test code=NRBC%) 0.0 % 0-0 NEUTROPHIL # (test code=NT#) 2.59 K/mm3 1.8-7.7 IMMATURE GRANULOCYTE # (test code=IG#) 0.02 x10 3/uL 0-0.03 LYMPHOCYTE # (test code=LY#) 1.81 K/mm3 1.0-5.0 MONOCYTE # (test code=MO#) 0.69 K/mm3 0-0.8 EOSINOPHIL # (test code=EO#) 0.29 K/mm3 0.0-0.5 BASOPHIL # (test code=BA#) 0.04 K/mm3 0.0-0.2 NUCLEATED RBC # (test code=NRBC#) 0.00 K/mm3 0.0-0.1 MANUAL DIFF REQUIRED (test code=MDIFF) NO, ONLY SCAN NEEDED DIFFERENTIAL [id number] 18:01:00* Test Item Value Reference Range Comments STAIN ACCEPTABILITY (test code=STN ACCEPTABLE) MORPHOLOGY COMMENT (test code=MOC) PLATELET ESTIMATE (test code=PLTEST) PLATELET MORPHOLOGY (test code=PLTMORPH) CBC W/AUTO [id number] 18:00:00* Test Item Value Reference Range Comments WHITE BLOOD CELL (test code=WBC) 5.4 K/mm3 4.5-12.5 RED BLOOD CELL (test code=RBC) 4.20 mill/mm3 3.7-5.2 HEMOGLOBIN (test code=HGB) 11.5 gram/dL 11.5-15.5 HEMATOCRIT (test code=HCT) 39.2 % 36.0-46.0 MEAN CELL VOLUME (test code=MCV) 93.3 fL 80-98 MEAN CELL HGB (test code=MCH) 27.4 picogram 27.0-33.0 MEAN CELL HGB CONCETRATION (test code=MCHC) 29.3 gram/dL 33.0-36.0 RED CELL DISTRIBUTION WIDTH (test code=RDW) 14.4 % 11.6-16.2 RED CELL DISTRIBUTION WIDTH SD (test code=RDW-SD) 49.4 fL 37.0-51.0 PLATELET COUNT (test code=PLT) 204 K/mm3 150-450 MEAN PLATELET VOLUME (test code=MPV) 9.3 fL 6.7-11.0 NEUTROPHIL % (test code=NT%) 47.6 % 39.0-69.0 IMMATURE GRANULOCYTE % (test code=IG%) 0.4 % 0.0-5.0 LYMPHOCYTE % (test code=LY%) 33.3 % 25.0-55.0 MONOCYTE % (test code=MO%) 12.7 % 0.0-10.0 EOSINOPHIL % (test code=EO%) 5.3 % 0.0-5.0 BASOPHIL % (test code=BA%) 0.7 % 0.0-1.0 NUCLEATED RBC % (test code=NRBC%) 0.0 % 0-0 NEUTROPHIL # (test code=NT#) 2.59 K/mm3 1.8-7.7 IMMATURE GRANULOCYTE # (test code=IG#) 0.02 x10 3/uL 0-0.03 LYMPHOCYTE # (test code=LY#) 1.81 K/mm3 1.0-5.0 MONOCYTE # (test code=MO#) 0.69 K/mm3 0-0.8 EOSINOPHIL # (test code=EO#) 0.29 K/mm3 0.0-0.5 BASOPHIL # (test code=BA#) 0.04 K/mm3 0.0-0.2 NUCLEATED RBC # (test code=NRBC#) 0.00 K/mm3 0.0-0.1 MANUAL DIFF REQUIRED (test code=MDIFF) NO, ONLY SCAN NEEDED DIFFERENTIAL [id number] 18:00:00* Test Item Value Reference Range Comments STAIN ACCEPTABILITY (test code=STN ACCEPTABLE) CABOT RINGS (test code=CAB) MORPHOLOGY COMMENT (test code=MOC) PLATELET ESTIMATE (test code=PLTEST) PLATELET MORPHOLOGY (test code=PLTMORPH) CBC W/AUTO [id number] 17:56:00* Test Item Value Reference Range Comments WHITE BLOOD CELL (test code=WBC) K/mm3 4.5-12.5 RED BLOOD CELL (test code=RBC) mill/mm3 3.7-5.2 HEMOGLOBIN (test code=HGB) 11.5 gram/dL 11.5-15.5 HEMATOCRIT (test code=HCT) 39.2 % 36.0-46.0 MEAN CELL VOLUME (test code=MCV) fL 80-98 MEAN CELL HGB (test code=MCH) picogram 27.0-33.0 MEAN CELL HGB CONCETRATION (test code=MCHC) gram/dL 33.0-36.0 RED CELL DISTRIBUTION WIDTH (test code=RDW) % 11.6-16.2 RED CELL DISTRIBUTION WIDTH SD (test code=RDW-SD) fL 37.0-51.0 PLATELET COUNT (test code=PLT) K/mm3 150-450 MEAN PLATELET VOLUME (test code=MPV) fL 6.7-11.0 NEUTROPHIL % (test code=NT%) % 39.0-69.0 IMMATURE GRANULOCYTE % (test code=IG%) % 0.0-5.0 LYMPHOCYTE % (test code=LY%) % 25.0-55.0 MONOCYTE % (test code=MO%) % 0.0-10.0 EOSINOPHIL % (test code=EO%) % 0.0-5.0 BASOPHIL % (test code=BA%) % 0.0-1.0 NEUTROPHIL # (test code=NT#) K/mm3 1.8-7.7 LYMPHOCYTE # (test code=LY#) K/mm3 1.0-5.0 MONOCYTE # (test code=MO#) K/mm3 0-0.8 EOSINOPHIL # (test code=EO#) K/mm3 0.0-0.5 BASOPHIL # (test code=BA#) K/mm3 0.0-0.2 [id number] 17:52:00* Test Item Value Reference Range Comments GLUBED (test code=GLUBED) 141 mg/dL 74-106 Performed by certified charm filter operator helper at [facility] URINALYSIS [id number] 14:23:00* Test Item Value Reference Range Comments UA COLOR (test code=COLU) LIGHT YELLOW YELLOW UA APPEARANCE (test code=APPU) CLEAR CLEAR UA GLUCOSE DIPSTICK (test code=DGLUU) >=500 mg/dL NEGATIVE UA BILIRUBIN DIPSTICK (test code=BILU) NEGATIVE mg/dL NEGATIVE UA KETONE DIPSTICK (test code=KETU) Negative mg/dL NEGATIVE UA SPECIFIC GRAVITY (test code=SGU) 1.015 1.001-1.035 UA BLOOD DIPSTICK (test code=SOILA) Negative NEGATIVE UA PH DIPSTICK (test code=RALEIGH) 7.0 5.0-8.0 UA PROTEIN DIPSTICK (test code=PROU) >500 (3+) mg/dL NEGATIVE UA UROBILINIOGEN DIPSTICK (test code=URO) NEGATIVE mg/dL NEGATIVE UA NITRITE DIPSTICK (test code=LISA) NEGATIVE NEGATIVE UA LEUKOCYTE ESTERASE W REFLEX (test code=LEUUR) NEGATIVE NEGATIVE UA WBC (test code=WBCU) 0-5 #/HPF 0-5 UA RBC (test code=RBCU) 0-2 #/HPF 0-5 UA EPITHELIAL CELLS (test code=EPIU) FEW per HPF FEW UA BACTERIA (test code=BACU) FEW #/HPF NONE UA HYALINE CAST (test code=HYALU) 0-2 #/LPF 0-5 UA MUCUS (test code=MUCU) FEW #/LPF FEW Urine Source? Clean CatchB-TYPE NATRIURETIC [id number] 12:54:00* Test Item Value Reference Range Comments B-TYPE NATRIURETIC PEPTIDE (test code=BNP) 600.20 pgram/mL 0-100 BASIC METABOLIC [id number] 12:43:00* Test Item Value Reference Range Comments SODIUM (test code=NA) 136 mmol/L 136-145 POTASSIUM (test code=K) 4.2 mmol/L 3.5-5.1 CHLORIDE (test code=CL) 97.0 mmol/L 98-107 CARBON DIOXIDE (test code=CO2) 26.0 mmol/L 21-32 ANION GAP (test code=GAP) 17.2 10-20 GLUCOSE (test code=GLU) 77 mg/dL 74-106 BLOOD UREA NITROGEN (test code=BUN) 60 mg/dL 7-18 GLOMERULAR FILTRATION RATE (test code=GFR) 6 mL/min >=60 Estimated GFR by using Modified MDRD formula.Chronic kidney disease is defined as either kidney damageor GFR <60 mL/min/1.73 m2 for >3 months. CREATININE (test code=CREAT) 6.80 mg/dL 0.55-1.02 Note change in reference range due to change in reagent. BUN/CREATININE RATIO (test code=BUN/CREA) 8.8 10-20 CALCIUM (test code=CA) 8.2 mg/dL 8.5-10.1 HEPATIC FUNCTION [id number] 12:43:00* Test Item Value Reference Range Comments TOTAL PROTEIN (test code=PROT) 7.7 gram/dL 6.4-8.2 ALBUMIN (test code=ALB) 3.1 g/dL 3.4-5.0 GLOBULIN (test code=GLOB) 4.6 gram/dL 2.7-4.2 ALBUMIN/GLOBULIN RATIO (test code=A/G) 0.7 0.75-1.50 BILIRUBIN TOTAL (test code=BILT) 0.30 mg/dL 0.0-1.0 BILIRUBIN DIRECT (test code=BILD) 0.06 mg/dL 0.0-0.20 SGOT/AST (test code=AST) 20 IUnit/L 15-37 SGPT/ALT (test code=ALT) 16 IUnit/L 12-78 ALKALINE PHOSPHATASE TOTAL (test code=ALKP) 260 IUnit/L 45-117 Note change in reference range due to change in reagent. [id number] 12:43:00* Test Item Value Reference Range Comments LIPASE (test code=LIP) 256 U/L 73.0-393.0 [id number] 12:43:00* Test Item Value Reference Range Comments TROPONIN-I (test code=TROPI) 0.022 ng/mL 0-0.045 BASIC METABOLIC [id number] 12:26:00* Test Item Value Reference Range Comments SODIUM (test code=NA) 136 mmol/L 136-145 POTASSIUM (test code=K) 4.2 mmol/L 3.5-5.1 CHLORIDE (test code=CL) 97.0 mmol/L 98-107 CARBON DIOXIDE (test code=CO2) mmol/L 21-32 ANION GAP (test code=GAP) 10-20 GLUCOSE (test code=GLU) mg/dL 74-106 BLOOD UREA NITROGEN (test code=BUN) mg/dL 7-18 GLOMERULAR FILTRATION RATE (test code=GFR) mL/min >=60 CREATININE (test code=CREAT) mg/dL 0.55-1.02 BUN/CREATININE RATIO (test code=BUN/CREA) 10-20 CALCIUM (test code=CA) mg/dL 8.5-10.1 HEPATIC FUNCTION [id number] 12:26:00* Test Item Value Reference Range Comments TOTAL PROTEIN (test code=PROT) gram/dL 6.4-8.2 ALBUMIN (test code=ALB) g/dL 3.4-5.0 GLOBULIN (test code=GLOB) gram/dL 2.7-4.2 ALBUMIN/GLOBULIN RATIO (test code=A/G) 0.75-1.50 BILIRUBIN TOTAL (test code=BILT) mg/dL 0.0-1.0 BILIRUBIN DIRECT (test code=BILD) mg/dL 0.0-0.20 SGOT/AST (test code=AST) IUnit/L 15-37 SGPT/ALT (test code=ALT) IUnit/L 12-78 ALKALINE PHOSPHATASE TOTAL (test code=ALKP) IUnit/L 45-117 [id number] 12:26:00* Test Item Value Reference Range Comments LIPASE (test code=LIP) U/L 73.0-393.0 [id number] 12:26:00* Test Item Value Reference Range Comments TROPONIN-I (test code=TROPI) ng/mL 0-0.045 PROTHROMBIN [id number] 12:14:00* Test Item Value Reference Range Comments PROTHROMBIN TIME PATIENT (test code=PTP) 10.5 seconds 9.0-14.0 INTERNATIONAL NORMAL RATIO (test code=INR) 0.9 0.8-1.2 The therapeutic range for oral anticoagulant therapy formost indications is an international normalized ratio (INR)of between 2.0 and 3.0. The recommended therapeutic INRrange for various clinical situations is listed below: Clinical Situation INR range Pulmonary e mbolism treatment (2.0-3.0)Venous thrombosis treatmentVenous thrombosis prophylaxis (high risk surgery)Prevention of systemic embolism from: Acute myocardial infarction Valvular heart disease Atrial fibrillation Mechanical prosthetic heart valves (2.5-3.5) IS PATIENT ON ANTICOAGULANTS? NTHROMBOPLASTIN TIME [id number] 12:14:00* Test Item Value Reference Range Comments THROMBOPLASTIN TIME PARTIAL (test code=PTT) 32.1 seconds 25.0-36.5 IS PATIENT ON ANTICOAGULANTS? NCBC W/O [id number] 12:04:00* Test Item Value Reference Range Comments WHITE BLOOD CELL (test code=WBC) 8.7 K/mm3 4.5-12.5 RED BLOOD CELL (test code=RBC) 3.95 mill/mm3 3.7-5.2 HEMOGLOBIN (test code=HGB) 11.0 gram/dL 11.5-15.5 HEMATOCRIT (test code=HCT) 36.3 % 36.0-46.0 MEAN CELL VOLUME (test code=MCV) 91.9 fL 80-98 MEAN CELL HGB (test code=MCH) 27.8 picogram 27.0-33.0 MEAN CELL HGB CONCETRATION (test code=MCHC) 30.3 gram/dL 33.0-36.0 RED CELL DISTRIBUTION WIDTH (test code=RDW) 14.6 % 11.6-16.2 PLATELET COUNT (test code=PLT) 232 K/mm3 150-450 MEAN PLATELET VOLUME (test code=MPV) 9.6 fL 6.7-11.0 CBC W/O [id number] 12:01:00* Test Item Value Reference Range Comments WHITE BLOOD CELL (test code=WBC) K/mm3 4.5-12.5 RED BLOOD CELL (test code=RBC) mill/mm3 3.7-5.2 HEMOGLOBIN (test code=HGB) gram/dL 11.5-15.5 HEMATOCRIT (test code=HCT) 36.3 % 36.0-46.0 MEAN CELL VOLUME (test code=MCV) fL 80-98 MEAN CELL HGB (test code=MCH) picogram 27.0-33.0 MEAN CELL HGB CONCETRATION (test code=MCHC) gram/dL 33.0-36.0 RED CELL DISTRIBUTION WIDTH (test code=RDW) % 11.6-16.2 PLATELET COUNT (test code=PLT) K/mm3 150-450 MEAN PLATELET VOLUME (test code=MPV) fL 6.7-11.0 - XR CHEST 1 [id number] 11:56:00 FAX: Na Martinez MD [phone] [place]: St: REG Name: JUSTIN PULLIAM [facility] : [birth year] Age/S: 58/F [address] [facility] Unit #: [id number] Loc: [place] [address] Phys: Na Martinez MD Acct: [id number] Dis Date: Status: REG ER PHONE #: [phone] Exam Date: 05/06/2018 1139 FAX #: [phone] Reason: CHEST PAIN EXAMS: CPT CODE: [id number] XR CHEST 1 V 41257 HISTORY: Chest pain. COMPARISON: March 03, 2018. No acute infiltrates, effusion or c ongestion is noted. Right catheter is unchanged. The cardiac and mediastinal silhouette are within normal limits. IMPRESSIO N: No acute infiltrates, effusion or congestion. at 1156 Reported and signed by: Rohit Arellano C: Na Martinez MD Technologist: Estella Hung RT(R) Trnscrd Date/Time/By: 05/06/2018 ([id number]) : By: [email or web address] Orig Print D/T: S: 05/06/2018 ([id number]) PAGE 1 Signed Report [id number] 11:16:00* Test Item Value Reference Range Comments GLUBED (test code=GLUBED) 86 mg/dL 74-106 Performed by certified charm filter operator helper at [facility] [id number] 07:51:00* Test Item Value Reference Range Comments GLUBED (test code=GLUBED) 150 mg/dL 74-106 Performed by certified charm filter operator helper at [facility] [id number] 07:51:00* Test Item Value Reference Range Comments GLUBED (test code=GLUBED) 225 mg/dL 74-106 Performed by certified charm filter operator helper at [facility] [id number] 07:51:00* Test Item Value Reference Range Comments GLUBED (test code=GLUBED) 193 mg/dL 74-106 Performed by certified charm filter operator helper at [facility] [id number] 07:51:00* Test Item Value Reference Range Comments GLUBED (test code=GLUBED) 173 mg/dL 74-106 Performed by certified charm filter operator helper at [facility] - SP THORACENTESIS [id number] 16:17:00 Name: JUSTIN BURRIS [facility]. SP : 1960 Age/S: 57 / F [address] [facility] Unit #: [id number] Loc: [place] [address] Phys: Sofie Blood MD Acct: [id number] Dis Date: Status: ADM IN PHONE #: [phone] Exam Date: 03/03/2018 1205 FAX #: [phone] Reason: EXAMS: CPT CODE: [id number] SP THORACENTESIS W/IMAG 19629 Fluoro Time: 0 DAP (Gy m2): 0 Air Kerma (mGy): 00 REASON FOR EXAM: Bilateral pleural effusions Exam order date: 03/03/2018 11:32 AM PROCEDURE: Ultrasound guided thoracenteses Attending Rohit: Sofie Blood MD CPT code: 89135 x2, 05118 x2 FINDINGS: After informed consent was obtained, the patient was brought to special procedures. The back was prepped and draped in the usual fashion. All elements of maximal sterile techniques were followed. Ultrasound was first used for assessment of the effusion. US shows large bilateral pleural effusions. Images of the effusions were submitted to PACS. 2% local lidocaine was given for local anesthetic. Under real time ultrasound guidance, a micropuncture needle was advanced into the left thoracic cavity. A guide wire was inserted and an 8 Fr catheter was inserted in the thoracic cavity. 1 L of fluid obtained. The catheter was removed and hemostasis obtained. Samples were submitted for gram stain, cultures, cell count, LDH, glucose, and protein. The same process was repeated on the right. Approximately 60 cc of fluid removed from the right MEDICATIONS: None COMPLICATIONS: No immediate. Blood loss: less than 5cc IMPRESSION: 1 L of fluid removed from the left thoracic cavity. 860 cc of fluid removed from the right thoracic cavity Electronically S igned by Rohit Hawk on 03/04/2018 at 1617 Reported and signed by: Immanuel Hawk M.D. CC: Sofie Blood MD; Michael Romo MD Technologist: LIGIA HERNANDEZ Trnmtb Date/Time: 03/04/2018 (1617) [email or web address] Orig Print D/T: S: 03/04/2018 (4030) PAGE 1 Signed Report - SP THORACENTESIS [id number] 16:17:00 Name: JUSTIN BURRIS [facility]. SP : 1960 Age/S: 57 / F [address] Unit #: [id number] [place] [address] Phys: Anai Blood MD Acct: [id number] Di s Date: Status: ADM IN PHONE #: Exam Date: 03/03/2018 1205 FAX #: [phone] Reason: EXAMS: CPT CODE: [id number] SP THORACENTESIS W/IMAG 62433 Fluoro Time: 0 DAP (Gy m2): 0 Air Kerma (mGy): 0 REASON FOR EXAM: Bilateral ple ural effusions Exam order date: 03/03/2018 11:32 AM P ROCEDURE: Ultrasound guided thoracenteses Attending MBryan: Sofie Blood MD CPT code: 98289 x2, 97295 x2 FINDINGS: Af ter informed consent was obtained, the patient was brought to special [facility]. The back was prepped and draped in the usual fashion. All elements of maximal sterile techniques were followed. Ultrasound was first used for assessment of the effusion. US shows large bilateral pleural effusions. Images of the effusions were submitted to PACS. 2% local lidocaine was gi bryce for local anesthetic. Under real time ultrasound guidance, a micropun cture needle was advanced into the left thoracic cavity. A guide wire was inserted and an 8 Fr catheter was inserted in the thoracic cavity. 1 L of fluid obtained. The catheter was removed and hemostasis obtained. Samples were submitted for gram stain, cultures, cell count, LDH, glucose, and protein. The same process was repeated on the right. Approximately 60 cc of fluid removed from the right MEDICATIONS: None COMPLICATIONS: No immediate. Blood loss: less than 5cc IMPRESSION: 1 L of fluid removed from the left thoracic cavity. 860 cc of fluid removed from the right thoracic cavity Electronically S igned by Rohit Hawk on 03/04/2018 at 1617 Reported and signed by: Immanuel Hawk M.D. CC: Sofie Blood MD; Michael Romo MD Technologist: LIGIA HERNANDEZ Trnmtb Date/Time: 03/04/2018 (1617) Gary Orig Print D/T: S: 03/04/2018 (1656) PAGE 1 Signed Report [id number] 16:11:00* Test Item Value Reference Range Comments GLUBED (test code=GLUBED) 182 mg/dL 74-106 Performed by certified charm filter operator helper at [facility] BASIC METABOLIC [id number] 10:40:00* Test Item Value Reference Range Comments SODIUM (test code=NA) 142 mmol/L 136-145 POTASSIUM (test code=K) 4.3 mmol/L 3.5-5.1 CHLORIDE (test code=CL) 107.0 mmol/L 98-107 CARBON DIOXIDE (test code=CO2) 26.0 mmol/L 21-32 ANION GAP (test code=GAP) 13.3 10-20 GLUCOSE (test code=GLU) 205 mg/dL 74-106 BLOOD UREA NITROGEN (test code=BUN) 72 mg/dL 7-18 GLOMERULAR FILTRATION RATE (test code=GFR) 7 mL/min >=60 Estimated GFR by using Modified MDRD formula.Chronic kidney disease is defined as either kidney damageor GFR <60 mL/min/1.73 m2 for >3 months. CREATININE (test code=CREAT) 6.20 mg/dL 0.55-1.02 Note change in reference range due to change in reagent. BUN/CREATININE RATIO (test code=BUN/CREA) 11.7 10-20 CALCIUM (test code=CA) 7.4 mg/dL 8.5-10.1 BASIC METABOLIC [id number] 10:36:00* Test Item Value Reference Range Comments SODIUM (test code=NA) 142 mmol/L 136-145 POTASSIUM (test code=K) 4.3 mmol/L 3.5-5.1 CHLORIDE (test code=CL) 107.0 mmol/L 98-107 CARBON DIOXIDE (test code=CO2) mmol/L 21-32 ANION GAP (test code=GAP) 10-20 GLUCOSE (test code=GLU) mg/dL 74-106 BLOOD UREA NITROGEN (test code=BUN) mg/dL 7-18 GLOMERULAR FILTRATION RATE (test code=GFR) mL/min >=60 CREATININE (test code=CREAT) mg/dL 0.55-1.02 BUN/CREATININE RATIO (test code=BUN/CREA) 10-20 CALCIUM (test code=CA) mg/dL 8.5-10.1 CBC W/AUTO [id number] 09:24:00* Test Item Value Reference Range Comments WHITE BLOOD CELL (test code=WBC) 9.7 K/mm3 4.5-12.5 RED BLOOD CELL (test code=RBC) 3.47 mill/mm3 3.7-5.2 HEMOGLOBIN (test code=HGB) 9.8 gram/dL 11.5-15.5 HEMATOCRIT (test code=HCT) 32.1 % 36.0-46.0 MEAN CELL VOLUME (test code=MCV) 92.5 fL 80-98 MEAN CELL HGB (test code=MCH) 28.2 picogram 27.0-33.0 MEAN CELL HGB CONCETRATION (test code=MCHC) 30.5 gram/dL 33.0-36.0 RED CELL DISTRIBUTION WIDTH (test code=RDW) 15.1 % 11.6-16.2 RED CELL DISTRIBUTION WIDTH SD (test code=RDW-SD) 48.8 fL 37.0-51.0 PLATELET COUNT (test code=PLT) 208 K/mm3 150-450 MEAN PLATELET VOLUME (test code=MPV) 9.9 fL 6.7-11.0 NEUTROPHIL % (test code=NT%) 55.7 % 39.0-69.0 IMMATURE GRANULOCYTE % (test code=IG%) 0.8 % 0.0-5.0 LYMPHOCYTE % (test code=LY%) 25.3 % 25.0-55.0 MONOCYTE % (test code=MO%) 8.8 % 0.0-10.0 EOSINOPHIL % (test code=EO%) 8.8 % 0.0-5.0 BASOPHIL % (test code=BA%) 0.6 % 0.0-1.0 NUCLEATED RBC % (test code=NRBC%) 0.0 % 0-0 NEUTROPHIL # (test code=NT#) 5.40 K/mm3 1.8-7.7 IMMATURE GRANULOCYTE # (test code=IG#) 0.08 x10 3/uL 0-0.03 LYMPHOCYTE # (test code=LY#) 2.45 K/mm3 1.0-5.0 MONOCYTE # (test code=MO#) 0.85 K/mm3 0-0.8 EOSINOPHIL # (test code=EO#) 0.85 K/mm3 0.0-0.5 BASOPHIL # (test code=BA#) 0.06 K/mm3 0.0-0.2 NUCLEATED RBC # (test code=NRBC#) 0.00 K/mm3 0.0-0.1 MANUAL DIFF REQUIRED (test code=MDIFF) NO - XR SWLW FUNC W/C [id number] 08:43:00 FAX: Sofie Ordoñez MD [phone] [place]: B St: ADM FAX: Michael Ellis MD [phone] FAX: Kalina Hernandez [phone] Name: JUSTIN BURRIS [facility] : 1960 Age/S: 57[address]F [address] #: [id number] Loc: V.2050 [place] [address] Phys: Kalina Solis MD Acct: [id number] Dis Date: Status: ADM IN ONE #: [phone] Exam Date: 03/03/2018 1350 FAX #: [phone] Reason: ASSESS SWALLOW EXAMS: CPT CODE: [id number] [facility] W/C V 884[address] HISTORY: Dysph kristian. This study was performed in concert with the speech patholog ist. Varying grades of barium were administered. No aspiration or laryngeal penetration. IMPRESSION: No aspiration or laryngeal penetration. For detailed evalua tion please see the accompanying sheet provided by the speech therapist. Fluoroscopy time utilized was 1.2 minutes and single image was obtaine d. at 0843 Reported and signed by: Roshan Figueroa M.D. CC: Sofie Blood MD; Michael Romo MD; Kalina Solis MD Technologist: Jessica ny Trnscrd Date/Time/By: 03/04/2018 (0843) : By: [email or web address] Orig Print D/T: S: 03/04/2018 (0846) PAGE 1 Signed Report [id number] 05:46:00* Test Item Value Reference Range Comments GLUBED (test code=GLUBED) 191 mg/dL 74-106 Performed by certified charm filter operator helper at [facility] [id number] 20:45:00* Test Item Value Reference Range Comments GLUBED (test code=GLUBED) 215 mg/dL 74-106 Performed by certified charm filter operator helper at [facility] PLEURAL FLD CELL [id number] 18:46:00* Test Item Value Reference Range Comments FLUID WBC AUTO (test code=WBCFLA) 37 cells/uL FLUID RBC AUTO (test code=RBCFLA) 1000 cells/uL FLUID TOTAL CELLS (test code=TCFL) 46 cells/uL >0 Fluid WBC RBC Type cells/uL cells/uL CSF (0-5) n/a Peritoneal n/a n/a Pleural n/a n/a Synovial <200 n/a CSF (0-30) n/a PLEURAL FLD COLOR (test code=COLPL) COLORLESS PLEURAL FLD APPEARANCE (test code=APPPL) CLOUDY Previously reported result: CLEAR Edited by: TAVARES on 03/03/18:1431 PLEURAL FLD POLY (test code=POLYPL) 4.6 % PLEURAL FLD LYMPHOCYTE (test code=LYMPHPL) 40.4 % PLEURAL FLD EOSINOPHIL (test code=EOSPL) 5.5 % PLEURAL FLD BASOPHIL (test code=BASOPL) 0.0 % PLEURAL FLD MACROPHAGE (test code=MACPL) 47.7 % PLEURAL FLD OTHER CELL (test code=OTHERPL) 1.8 % TOTAL CELLS COUNTED ON DIFF (test code=TOTCELLFL) 109 cells Previously reported result: 110 cellsEdited by: TAVARES on 03/03/18:720974/ 1431: TOTAL CELLS previously reported as: 110 cells REVIEWED BY (test code=REVIEW) PATHOLOGIST REVIEWED BY: DAWSON HENAO M.D.03/03/18 SPECIMEN COMMENTS: RIGHT PLEURAL FLUIDSPECIMEN COMMENTS: RIGHT PLEURAL FLUID. PLEURAL FLD [id number] 18:46:00* Test Item Value Reference Range Comments PLEURAL FLD PH (test code=PHPL) 7 SPECIMEN COMMENTS: RIGHT PLEURAL FLUIDSPECIMEN COMMENTS: RIGHT PLEURAL FLUID. PLEURAL FLD [id number] 18:46:00* Test Item Value Reference Range Comments PLEURAL FLD GLUCOSE (test code=GLUPL) 236 MG/DL SPECIMEN COMMENTS: RIGHT PLEURAL FLUIDSPECIMEN COMMENTS: RIGHT PLEURAL FLUID. PLEURAL FLD TOTAL [id number] 18:46:00* Test Item Value Reference Range Comments PLEURAL FLD TOTAL PROTEIN (test code=PROTPL) 1.0 gram/dL SPECIMEN COMMENTS: RIGHT PLEURAL FLUIDSPECIMEN COMMENTS: RIGHT PLEURAL FLUID. PLEURAL FLD [id number] 18:46:00* Test Item Value Reference Range Comments PLEURAL FLD LDH (test code=LDHPL) 89 IUnit/L SPECIMEN COMMENTS: RIGHT PLEURAL FLUIDSPECIMEN COMMENTS: RIGHT PLEURAL FLUID. PLEURAL FLD [id number] 18:46:00* Test Item Value Reference Range Comments PLEURAL FLD CHOLESTEROL (test code=CHOLPL) < 50 MG/DL SPECIMEN COMMENTS: RIGHT PLEURAL FLUIDSPECIMEN COMMENTS: RIGHT PLEURAL FLUID. PLEURAL FLD [id number] 18:46:00* Test Item Value Reference Range Comments PLEURAL FLD TRIGLYCERIDE (test code=TRIGPL) 4 MG/DL SPECIMEN COMMENTS: RIGHT PLEURAL FLUIDSPECIMEN COMMENTS: RIGHT PLEURAL FLUID. PLEURAL FLD CELL [id number] 18:45:00* Test Item Value Reference Range Comments FLUID WBC AUTO (test code=WBCFLA) 104 cells/uL FLUID RBC AUTO (test code=RBCFLA) 0 cells/uL FLUID TOTAL CELLS (test code=TCFL) 113 cells/uL >0 Fluid WBC RBC Type cells/uL cells/uL CSF (0-5) n/a Peritoneal n/a n/a Pleural n/a n/a Synovial <200 n/a CSF (0-30) n/a PLEURAL FLD COLOR (test code=COLPL) COLORLESS PLEURAL FLD APPEARANCE (test code=APPPL) CLOUDY PLEURAL FLD POLY (test code=POLYPL) 7.3 % PLEURAL FLD LYMPHOCYTE (test code=LYMPHPL) 36.4 % PLEURAL FLD EOSINOPHIL (test code=EOSPL) 1.8 % PLEURAL FLD BASOPHIL (test code=BASOPL) 0.0 % PLEURAL FLD MACROPHAGE (test code=MACPL) 50.0 % PLEURAL FLD OTHER CELL (test code=OTHERPL) 4.5 % TOTAL CELLS COUNTED ON DIFF (test code=TOTCELLFL) 110 cells REVIEWED BY (test code=REVIEW) PATHOLOGIST REVIEWED BY: DAWSON HENAO M.D.03/03/18 SPECIMEN COMMENTS: LEFT PLEURAL FLUIDPLEURAL FLD [id number] 18:45:00* Test Item Value Reference Range Comments PLEURAL FLD PH (test code=PHPL) 7 SPECIMEN COMMENTS: LEFT PLEURAL FLUIDPLEURAL FLD [id number] 18:45:00* Test Item Value Reference Range Comments PLEURAL FLD GLUCOSE (test code=GLUPL) 239 MG/DL SPECIMEN COMMENTS: LEFT PLEURAL FLUIDPLEURAL FLD TOTAL [id number] 18:45:00* Test Item Value Reference Range Comments PLEURAL FLD TOTAL PROTEIN (test code=PROTPL) 0.9 gram/dL SPECIMEN COMMENTS: LEFT PLEURAL FLUIDPLEURAL FLD [id number] 18:45:00* Test Item Value Reference Range Comments PLEURAL FLD LDH (test code=LDHPL) 120 IUnit/L SPECIMEN COMMENTS: LEFT PLEURAL FLUIDPLEURAL FLD [id number] 18:45:00 * Test Item Value Reference Range Comments PLEURAL FLD CHOLESTEROL (test code=CHOLPL) < 50 MG/DL SPECIMEN COMMENTS: LEFT PLEURAL FLUIDPLEURAL FLD [id number] 18:45:00 * Test Item Value Reference Range Comments PLEURAL FLD TRIGLYCERIDE (test code=TRIGPL) 2 MG/DL SPECIMEN COMMENTS: LEFT PLEURAL [id number] 15:51:00* Test Item Value Reference Range Comments GLUBED (test code=GLUBED) 167 mg/dL 74-106 Performed by certified charm filter operator helper at [facility] PLEURAL FLD CELL [id number] 14:40:00* Test Item Value Reference Range Comments FLUID WBC AUTO (test code=WBCFLA) 37 cells/uL FLUID RBC AUTO (test code=RBCFLA) 1000 cells/uL FLUID TOTAL CELLS (test code=TCFL) 46 cells/uL >0 Fluid WBC RBC Type cells/uL cells/uL CSF (0-5) n/a Peritoneal n/a n/a Pleural n/a n/a Synovial <200 n/a CSF (0-30) n/a PLEURAL FLD COLOR (test code=COLPL) COLORLESS PLEURAL FLD APPEARANCE (test code=APPPL) CLOUDY Previously reported result: CLEAR Edited by: TAVARES on 03/03/18:1431 PLEURAL FLD POLY (test code=POLYPL) 4.6 % PLEURAL FLD LYMPHOCYTE (test code=LYMPHPL) 40.4 % PLEURAL FLD EOSINOPHIL (test code=EOSPL) 5.5 % PLEURAL FLD BASOPHIL (test code=BASOPL) 0.0 % PLEURAL FLD MACROPHAGE (test code=MACPL) 47.7 % PLEURAL FLD OTHER CELL (test code=OTHERPL) 1.8 % TOTAL CELLS COUNTED ON DIFF (test code=TOTCELLFL) 109 cells Previously reported result: 110 cellsEdited by: ATVARES on 03/03/18:199904 1431: TOTAL CELLS previously reported as: 110 cells REVIEWED BY (test code=REVIEW) PATHOLOGIST SPECIMEN COMMENTS: RIGHT PLEURAL FLUIDSPECIMEN COMMENTS: RIGHT PLEURAL FLUID. PLEURAL FLD [id number] 14:40:00* Test Item Value Reference Range Comments PLEURAL FLD PH (test code=PHPL) 7 SPECIMEN COMMENTS: RIGHT PLEURAL FLUIDSPECIMEN COMMENTS: RIGHT PLEURAL FLUID. PLEURAL FLD [id number] 14:40:00* Test Item Value Reference Range Comments PLEURAL FLD GLUCOSE (test code=GLUPL) 236 MG/DL SPECIMEN COMMENTS: RIGHT PLEURAL FLUIDSPECIMEN COMMENTS: RIGHT PLEURAL FLUID. PLEURAL FLD TOTAL [id number] 14:40:00* Test Item Value Reference Range Comments PLEURAL FLD TOTAL PROTEIN (test code=PROTPL) 1.0 gram/dL SPECIMEN COMMENTS: RIGHT PLEURAL FLUIDSPECIMEN COMMENTS: RIGHT PLEURAL FLUID. PLEURAL FLD [id number] 14:40:00* Test Item Value Reference Range Comments PLEURAL FLD LDH (test code=LDHPL) 89 IUnit/L SPECIMEN COMMENTS: RIGHT PLEURAL FLUIDSPECIMEN COMMENTS: RIGHT PLEURAL FLUID. PLEURAL FLD [id number] 14:40:00* Test Item Value Reference Range Comments PLEURAL FLD CHOLESTEROL (test code=CHOLPL) < 50 MG/DL SPECIMEN COMMENTS: RIGHT PLEURAL FLUIDSPECIMEN COMMENTS: RIGHT PLEURAL FLUID. PLEURAL FLD [id number] 14:40:00* Test Item Value Reference Range Comments PLEURAL FLD TRIGLYCERIDE (test code=TRIGPL) 4 MG/DL SPECIMEN COMMENTS: RIGHT PLEURAL FLUIDSPECIMEN COMMENTS: RIGHT PLEURAL FLUID. PLEURAL FLD CELL [id number] 14:38:00* Test Item Value Reference Range Comments FLUID WBC AUTO (test code=WBCFLA) 37 cells/uL FLUID RBC AUTO (test code=RBCFLA) 1000 cells/uL FLUID TOTAL CELLS (test code=TCFL) 46 cells/uL >0 Fluid WBC RBC Type cells/uL cells/uL CSF (0-5) n/a Peritoneal n/a n/a Pleural n/a n/a Synovial <200 n/a CSF (0-30) n/a PLEURAL FLD COLOR (test code=COLPL) COLORLESS PLEURAL FLD APPEARANCE (test code=APPPL) CLOUDY Previously reported result: CLEAR Edited by: TAVARES on 03/03/18:1431 PLEURAL FLD POLY (test code=POLYPL) 4.6 % PLEURAL FLD LYMPHOCYTE (test code=LYMPHPL) 40.4 % PLEURAL FLD EOSINOPHIL (test code=EOSPL) 5.5 % PLEURAL FLD BASOPHIL (test code=BASOPL) 0.0 % PLEURAL FLD MACROPHAGE (test code=MACPL) 47.7 % PLEURAL FLD OTHER CELL (test code=OTHERPL) 1.8 % TOTAL CELLS COUNTED ON DIFF (test code=TOTCELLFL) cells Previously reported result: 110 cellsEdited by: TAVARES on 03/03/18:046891 1431: TOTAL CELLS previously reported as: 110 cells REVIEWED BY (test code=REVIEW) PATHOLOGIST SPECIMEN COMMENTS: RIGHT PLEURAL FLUIDSPECIMEN COMMENTS: RIGHT PLEURAL FLUID. PLEURAL FLD [id number] 14:38:00* Test Item Value Reference Range Comments PLEURAL FLD PH (test code=PHPL) 7 SPECIMEN COMMENTS: RIGHT PLEURAL FLUIDSPECIMEN COMMENTS: RIGHT PLEURAL FLUID. PLEURAL FLD [id number] 14:38:00* Test Item Value Reference Range Comments PLEURAL FLD GLUCOSE (test code=GLUPL) 236 MG/DL SPECIMEN COMMENTS: RIGHT PLEURAL FLUIDSPECIMEN COMMENTS: RIGHT PLEURAL FLUID. PLEURAL FLD TOTAL [id number] 14:38:00* Test Item Value Reference Range Comments PLEURAL FLD TOTAL PROTEIN (test code=PROTPL) 1.0 gram/dL SPECIMEN COMMENTS: RIGHT PLEURAL FLUIDSPECIMEN COMMENTS: RIGHT PLEURAL FLUID. PLEURAL FLD [id number] 14:38:00* Test Item Value Reference Range Comments PLEURAL FLD LDH (test code=LDHPL) 89 IUnit/L SPECIMEN COMMENTS: RIGHT PLEURAL FLUIDSPECIMEN COMMENTS: RIGHT PLEURAL FLUID. PLEURAL FLD [id number] 14:38:00* Test Item Value Reference Range Comments PLEURAL FLD CHOLESTEROL (test code=CHOLPL) < 50 MG/DL SPECIMEN COMMENTS: RIGHT PLEURAL FLUIDSPECIMEN COMMENTS: RIGHT PLEURAL FLUID. PLEURAL FLD [id number] 14:38:00* Test Item Value Reference Range Comments PLEURAL FLD TRIGLYCERIDE (test code=TRIGPL) 4 MG/DL SPECIMEN COMMENTS: RIGHT PLEURAL FLUIDSPECIMEN COMMENTS: RIGHT PLEURAL FLUID. PLEURAL FLD CELL [id number] 14:32:00* Test Item Value Reference Range Comments FLUID WBC AUTO (test code=WBCFLA) 104 cells/uL FLUID RBC AUTO (test code=RBCFLA) 0 cells/uL FLUID TOTAL CELLS (test code=TCFL) 113 cells/uL >0 Fluid WBC RBC Type cells/uL cells/uL CSF (0-5) n/a Peritoneal n/a n/a Pleural n/a n/a Synovial <200 n/a CSF (0-30) n/a PLEURAL FLD COLOR (test code=COLPL) COLORLESS PLEURAL FLD APPEARANCE (test code=APPPL) CLOUDY PLEURAL FLD POLY (test code=POLYPL) 7.3 % PLEURAL FLD LYMPHOCYTE (test code=LYMPHPL) 36.4 % PLEURAL FLD EOSINOPHIL (test code=EOSPL) 1.8 % PLEURAL FLD BASOPHIL (test code=BASOPL) 0.0 % PLEURAL FLD MACROPHAGE (test code=MACPL) 50.0 % PLEURAL FLD OTHER CELL (test code=OTHERPL) 4.5 % TOTAL CELLS COUNTED ON DIFF (test code=TOTCELLFL) 110 cells REVIEWED BY (test code=REVIEW) PATHOLOGIST SPECIMEN COMMENTS: LEFT PLEURAL FLUIDPLEURAL FLD [id number] 14:32:00* Test Item Value Reference Range Comments PLEURAL FLD PH (test code=PHPL) 7 SPECIMEN COMMENTS: LEFT PLEURAL FLUIDPLEURAL FLD [id number] 14:32:00* Test Item Value Reference Range Comments PLEURAL FLD GLUCOSE (test code=GLUPL) 239 MG/DL SPECIMEN COMMENTS: LEFT PLEURAL FLUIDPLEURAL FLD TOTAL [id number] 14:32:00* Test Item Value Reference Range Comments PLEURAL FLD TOTAL PROTEIN (test code=PROTPL) 0.9 gram/dL SPECIMEN COMMENTS: LEFT PLEURAL FLUIDPLEURAL FLD [id number] 14:32:00* Test Item Value Reference Range Comments PLEURAL FLD LDH (test code=LDHPL) 120 IUnit/L SPECIMEN COMMENTS: LEFT PLEURAL FLUIDPLEURAL FLD [id number] 14:32:00 * Test Item Value Reference Range Comments PLEURAL FLD CHOLESTEROL (test code=CHOLPL) < 50 MG/DL SPECIMEN COMMENTS: LEFT PLEURAL FLUIDPLEURAL FLD [id number] 14:32:00 * Test Item Value Reference Range Comments PLEURAL FLD TRIGLYCERIDE (test code=TRIGPL) 2 MG/DL SPECIMEN COMMENTS: LEFT PLEURAL FLUIDPLEURAL FLD CELL [id number] 14:31:00 * Test Item Value Reference Range Comments FLUID WBC AUTO (test code=WBCFLA) 37 cells/uL FLUID RBC AUTO (test code=RBCFLA) 1000 cells/uL FLUID TOTAL CELLS (test code=TCFL) 46 cells/uL >0 Fluid WBC RBC Type cells/uL cells/uL CSF (0-5) n/a Peritoneal n/a n/a Pleural n/a n/a Synovial <200 n/a CSF (0-30) n/a PLEURAL FLD COLOR (test code=COLPL) COLORLESS PLEURAL FLD APPEARANCE (test code=APPPL) CLOUDY Previously reported result: CLEAR Edited by: TAVARES on 03/03/18:1431 TOTAL CELLS COUNTED ON DIFF (test code=TOTCELLFL) cells Previously reported result: 110 cellsEdited by: TAVARES on 03/03/18:527349/ 1431: TOTAL CELLS previously reported as: 110 cells REVIEWED BY (test code=REVIEW) PATHOLOGIST SPECIMEN COMMENTS: RIGHT PLEURAL FLUIDSPECIMEN COMMENTS: RIGHT PLEURAL FLUID. PLEURAL FLD [id number] 14:31:00* Test Item Value Reference Range Comments PLEURAL FLD PH (test code=PHPL) 7 SPECIMEN COMMENTS: RIGHT PLEURAL FLUIDSPECIMEN COMMENTS: RIGHT PLEURAL FLUID. PLEURAL FLD [id number] 14:31:00* Test Item Value Reference Range Comments PLEURAL FLD GLUCOSE (test code=GLUPL) 236 MG/DL SPECIMEN COMMENTS: RIGHT PLEURAL FLUIDSPECIMEN COMMENTS: RIGHT PLEURAL FLUID. PLEURAL FLD TOTAL [id number] 14:31:00* Test Item Value Reference Range Comments PLEURAL FLD TOTAL PROTEIN (test code=PROTPL) 1.0 gram/dL SPECIMEN COMMENTS: RIGHT PLEURAL FLUIDSPECIMEN COMMENTS: RIGHT PLEURAL FLUID. PLEURAL FLD [id number] 14:31:00* Test Item Value Reference Range Comments PLEURAL FLD LDH (test code=LDHPL) 89 IUnit/L SPECIMEN COMMENTS: RIGHT PLEURAL FLUIDSPECIMEN COMMENTS: RIGHT PLEURAL FLUID. PLEURAL FLD [id number] 14:31:00* Test Item Value Reference Range Comments PLEURAL FLD CHOLESTEROL (test code=CHOLPL) < 50 MG/DL SPECIMEN COMMENTS: RIGHT PLEURAL FLUIDSPECIMEN COMMENTS: RIGHT PLEURAL FLUID. PLEURAL FLD [id number] 14:31:00* Test Item Value Reference Range Comments PLEURAL FLD TRIGLYCERIDE (test code=TRIGPL) 4 MG/DL SPECIMEN COMMENTS: RIGHT PLEURAL FLUIDSPECIMEN COMMENTS: RIGHT PLEURAL FLUID. PLEURAL FLD CELL [id number] 14:28:00* Test Item Value Reference Range Comments FLUID WBC AUTO (test code=WBCFLA) 37 cells/uL FLUID RBC AUTO (test code=RBCFLA) 1000 cells/uL FLUID TOTAL CELLS (test code=TCFL) 46 cells/uL >0 Fluid WBC RBC Type cells/uL cells/uL CSF (0-5) n/a Peritoneal n/a n/a Pleural n/a n/a Synovial <200 n/a CSF (0-30) n/a PLEURAL FLD COLOR (test code=COLPL) COLORLESS PLEURAL FLD APPEARANCE (test code=APPPL) CLEAR TOTAL CELLS COUNTED ON DIFF (test code=TOTCELLFL) 110 cells REVIEWED BY (test code=REVIEW) PATHOLOGIST SPECIMEN COMMENTS: RIGHT PLEURAL FLUIDSPECIMEN COMMENTS: RIGHT PLEURAL FLUID. PLEURAL FLD [id number] 14:28:00* Test Item Value Reference Range Comments PLEURAL FLD PH (test code=PHPL) 7 SPECIMEN COMMENTS: RIGHT PLEURAL FLUIDSPECIMEN COMMENTS: RIGHT PLEURAL FLUID. PLEURAL FLD [id number] 14:28:00* Test Item Value Reference Range Comments PLEURAL FLD GLUCOSE (test code=GLUPL) 236 MG/DL SPECIMEN COMMENTS: RIGHT PLEURAL FLUIDSPECIMEN COMMENTS: RIGHT PLEURAL FLUID. PLEURAL FLD TOTAL [id number] 14:28:00* Test Item Value Reference Range Comments PLEURAL FLD TOTAL PROTEIN (test code=PROTPL) 1.0 gram/dL SPECIMEN COMMENTS: RIGHT PLEURAL FLUIDSPECIMEN COMMENTS: RIGHT PLEURAL FLUID. PLEURAL FLD [id number] 14:28:00* Test Item Value Reference Range Comments PLEURAL FLD LDH (test code=LDHPL) 89 IUnit/L SPECIMEN COMMENTS: RIGHT PLEURAL FLUIDSPECIMEN COMMENTS: RIGHT PLEURAL FLUID. PLEURAL FLD [id number] 14:28:00* Test Item Value Reference Range Comments PLEURAL FLD CHOLESTEROL (test code=CHOLPL) < 50 MG/DL SPECIMEN COMMENTS: RIGHT PLEURAL FLUIDSPECIMEN COMMENTS: RIGHT PLEURAL FLUID. PLEURAL FLD [id number] 14:28:00* Test Item Value Reference Range Comments PLEURAL FLD TRIGLYCERIDE (test code=TRIGPL) 4 MG/DL SPECIMEN COMMENTS: RIGHT PLEURAL FLUIDSPECIMEN COMMENTS: RIGHT PLEURAL FLUID. PLEURAL FLD CELL [id number] 14:26:00* Test Item Value Reference Range Comments FLUID WBC AUTO (test code=WBCFLA) 104 cells/uL FLUID RBC AUTO (test code=RBCFLA) 0 cells/uL FLUID TOTAL CELLS (test code=TCFL) 113 cells/uL >0 Fluid WBC RBC Type cells/uL cells/uL CSF (0-5) n/a Peritoneal n/a n/a Pleural n/a n/a Synovial <200 n/a CSF (0-30) n/a PLEURAL FLD COLOR (test code=COLPL) PLEURAL FLD APPEARANCE (test code=APPPL) PLEURAL FLD WBC (test code=WBCPL) per uL 0-1000 PLEURAL FLD RBC (test code=RBCPL) per uL 0-50 PLEURAL FLD POLY (test code=POLYPL) 7.3 % PLEURAL FLD LYMPHOCYTE (test code=LYMPHPL) 36.4 % PLEURAL FLD EOSINOPHIL (test code=EOSPL) 1.8 % PLEURAL FLD BASOPHIL (test code=BASOPL) 0.0 % PLEURAL FLD MACROPHAGE (test code=MACPL) 50.0 % PLEURAL FLD OTHER CELL (test code=OTHERPL) 4.5 % TOTAL CELLS COUNTED ON DIFF (test code=TOTCELLFL) cells REVIEWED BY (test code=REVIEW) PATHOLOGIST SPECIMEN COMMENTS: LEFT PLEURAL FLUIDPLEURAL FLD [id number] 14:26:00* Test Item Value Reference Range Comments PLEURAL FLD PH (test code=PHPL) SPECIMEN COMMENTS: LEFT PLEURAL FLUIDPLEURAL FLD [id number] 14:26:00* Test Item Value Reference Range Comments PLEURAL FLD GLUCOSE (test code=GLUPL) 239 MG/DL SPECIMEN COMMENTS: LEFT PLEURAL FLUIDPLEURAL FLD TOTAL [id number] 14:26:00* Test Item Value Reference Range Comments PLEURAL FLD TOTAL PROTEIN (test code=PROTPL) 0.9 gram/dL SPECIMEN COMMENTS: LEFT PLEURAL FLUIDPLEURAL FLD [id number] 14:26:00* Test Item Value Reference Range Comments PLEURAL FLD LDH (test code=LDHPL) 120 IUnit/L SPECIMEN COMMENTS: LEFT PLEURAL FLUIDPLEURAL FLD [id number] 14:26:00 * Test Item Value Reference Range Comments PLEURAL FLD CHOLESTEROL (test code=CHOLPL) < 50 MG/DL SPECIMEN COMMENTS: LEFT PLEURAL FLUIDPLEURAL FLD [id number] 14:26:00 * Test Item Value Reference Range Comments PLEURAL FLD TRIGLYCERIDE (test code=TRIGPL) 2 MG/DL SPECIMEN COMMENTS: LEFT PLEURAL FLUIDPLEURAL FLD CELL [id number] 14:13:00 * Test Item Value Reference Range Comments FLUID WBC AUTO (test code=WBCFLA) 104 cells/uL FLUID RBC AUTO (test code=RBCFLA) 0 cells/uL FLUID TOTAL CELLS (test code=TCFL) 113 cells/uL >0 Fluid WBC RBC Type cells/uL cells/uL CSF (0-5) n/a Peritoneal n/a n/a Pleural n/a n/a Synovial <200 n/a CSF (0-30) n/a PLEURAL FLD COLOR (test code=COLPL) PLEURAL FLD APPEARANCE (test code=APPPL) PLEURAL FLD WBC (test code=WBCPL) per uL 0-1000 PLEURAL FLD RBC (test code=RBCPL) per uL 0-50 TOTAL CELLS COUNTED ON DIFF (test code=TOTCELLFL) cells REVIEWED BY (test code=REVIEW) PATHOLOGIST SPECIMEN COMMENTS: LEFT PLEURAL FLUIDPLEURAL FLD [id number] 14:13:00* Test Item Value Reference Range Comments PLEURAL FLD PH (test code=PHPL) SPECIMEN COMMENTS: LEFT PLEURAL FLUIDPLEURAL FLD [id number] 14:13:00* Test Item Value Reference Range Comments PLEURAL FLD GLUCOSE (test code=GLUPL) 239 MG/DL SPECIMEN COMMENTS: LEFT PLEURAL FLUIDPLEURAL FLD TOTAL [id number] 14:13:00* Test Item Value Reference Range Comments PLEURAL FLD TOTAL PROTEIN (test code=PROTPL) 0.9 gram/dL SPECIMEN COMMENTS: LEFT PLEURAL FLUIDPLEURAL FLD [id number] 14:13:00* Test Item Value Reference Range Comments PLEURAL FLD LDH (test code=LDHPL) 120 IUnit/L SPECIMEN COMMENTS: LEFT PLEURAL FLUIDPLEURAL FLD [id number] 14:13:00 * Test Item Value Reference Range Comments PLEURAL FLD CHOLESTEROL (test code=CHOLPL) < 50 MG/DL SPECIMEN COMMENTS: LEFT PLEURAL FLUIDPLEURAL FLD [id number] 14:13:00 * Test Item Value Reference Range Comments PLEURAL FLD TRIGLYCERIDE (test code=TRIGPL) 2 MG/DL SPECIMEN COMMENTS: LEFT PLEURAL FLUIDPLEURAL FLD CELL [id number] 14:06:00 * Test Item Value Reference Range Comments FLUID WBC AUTO (test code=WBCFLA) 37 cells/uL FLUID RBC AUTO (test code=RBCFLA) 1000 cells/uL FLUID TOTAL CELLS (test code=TCFL) 46 cells/uL >0 Fluid WBC RBC Type cells/uL cells/uL CSF (0-5) n/a Peritoneal n/a n/a Pleural n/a n/a Synovial <200 n/a CSF (0-30) n/a PLEURAL FLD COLOR (test code=COLPL) PLEURAL FLD APPEARANCE (test code=APPPL) PLEURAL FLD WBC (test code=WBCPL) per uL 0-1000 PLEURAL FLD RBC (test code=RBCPL) per uL 0-50 TOTAL CELLS COUNTED ON DIFF (test code=TOTCELLFL) cells REVIEWED BY (test code=REVIEW) PATHOLOGIST SPECIMEN COMMENTS: RIGHT PLEURAL FLUIDSPECIMEN COMMENTS: RIGHT PLEURAL FLUID. PLEURAL FLD [id number] 14:06:00* Test Item Value Reference Range Comments PLEURAL FLD PH (test code=PHPL) SPECIMEN COMMENTS: RIGHT PLEURAL FLUIDSPECIMEN COMMENTS: RIGHT PLEURAL FLUID. PLEURAL FLD [id number] 14:06:00* Test Item Value Reference Range Comments PLEURAL FLD GLUCOSE (test code=GLUPL) 236 MG/DL SPECIMEN COMMENTS: RIGHT PLEURAL FLUIDSPECIMEN COMMENTS: RIGHT PLEURAL FLUID. PLEURAL FLD TOTAL [id number] 14:06:00* Test Item Value Reference Range Comments PLEURAL FLD TOTAL PROTEIN (test code=PROTPL) 1.0 gram/dL SPECIMEN COMMENTS: RIGHT PLEURAL FLUIDSPECIMEN COMMENTS: RIGHT PLEURAL FLUID. PLEURAL FLD [id number] 14:06:00* Test Item Value Reference Range Comments PLEURAL FLD LDH (test code=LDHPL) 89 IUnit/L SPECIMEN COMMENTS: RIGHT PLEURAL FLUIDSPECIMEN COMMENTS: RIGHT PLEURAL FLUID. PLEURAL FLD [id number] 14:06:00* Test Item Value Reference Range Comments PLEURAL FLD CHOLESTEROL (test code=CHOLPL) < 50 MG/DL SPECIMEN COMMENTS: RIGHT PLEURAL FLUIDSPECIMEN COMMENTS: RIGHT PLEURAL FLUID. PLEURAL FLD [id number] 14:06:00* Test Item Value Reference Range Comments PLEURAL FLD TRIGLYCERIDE (test code=TRIGPL) 4 MG/DL SPECIMEN COMMENTS: RIGHT PLEURAL FLUIDSPECIMEN COMMENTS: RIGHT PLEURAL FLUID. [id number] 14:01:00* Test Item Value Reference Range Comments GLUBED (test code=GLUBED) 235 mg/dL 74-106 Performed by certified charm filter operator helper at [facility] PLEURAL FLD CELL [id number] 13:51:00* Test Item Value Reference Range Comments FLUID WBC AUTO (test code=WBCFLA) 104 cells/uL FLUID RBC AUTO (test code=RBCFLA) 0 cells/uL FLUID TOTAL CELLS (test code=TCFL) 113 cells/uL >0 Fluid WBC RBC Type cells/uL cells/uL CSF (0-5) n/a Peritoneal n/a n/a Pleural n/a n/a Synovial <200 n/a CSF (0-30) n/a PLEURAL FLD COLOR (test code=COLPL) PLEURAL FLD APPEARANCE (test code=APPPL) PLEURAL FLD WBC (test code=WBCPL) per uL 0-1000 PLEURAL FLD RBC (test code=RBCPL) per uL 0-50 TOTAL CELLS COUNTED ON DIFF (test code=TOTCELLFL) cells REVIEWED BY (test code=REVIEW) PATHOLOGIST SPECIMEN COMMENTS: LEFT PLEURAL FLUIDPLEURAL FLD [id number] 13:51:00* Test Item Value Reference Range Comments PLEURAL FLD PH (test code=PHPL) SPECIMEN COMMENTS: LEFT PLEURAL FLUIDPLEURAL FLD [id number] 13:51:00* Test Item Value Reference Range Comments PLEURAL FLD GLUCOSE (test code=GLUPL) MG/DL SPECIMEN COMMENTS: LEFT PLEURAL FLUIDPLEURAL FLD TOTAL [id number] 13:51:00* Test Item Value Reference Range Comments PLEURAL FLD TOTAL PROTEIN (test code=PROTPL) gram/dL SPECIMEN COMMENTS: LEFT PLEURAL FLUIDPLEURAL FLD [id number] 13:51:00* Test Item Value Reference Range Comments PLEURAL FLD LDH (test code=LDHPL) IUnit/L SPECIMEN COMMENTS: LEFT PLEURAL FLUIDPLEURAL FLD [id number] 13:51:00 * Test Item Value Reference Range Comments PLEURAL FLD CHOLESTEROL (test code=CHOLPL) MG/DL SPECIMEN COMMENTS: LEFT PLEURAL FLUIDPLEURAL FLD [id number] 13:51:00 * Test Item Value Reference Range Comments PLEURAL FLD TRIGLYCERIDE (test code=TRIGPL) MG/DL SPECIMEN COMMENTS: LEFT PLEURAL FLUIDPLEURAL FLD CELL [id number] 13:43:00 * Test Item Value Reference Range Comments FLUID WBC AUTO (test code=WBCFLA) 37 cells/uL FLUID RBC AUTO (test code=RBCFLA) 1000 cells/uL FLUID TOTAL CELLS (test code=TCFL) 46 cells/uL >0 Fluid WBC RBC Type cells/uL cells/uL CSF (0-5) n/a Peritoneal n/a n/a Pleural n/a n/a Synovial <200 n/a CSF (0-30) n/a PLEURAL FLD COLOR (test code=COLPL) PLEURAL FLD APPEARANCE (test code=APPPL) PLEURAL FLD WBC (test code=WBCPL) per uL 0-1000 PLEURAL FLD RBC (test code=RBCPL) per uL 0-50 TOTAL CELLS COUNTED ON DIFF (test code=TOTCELLFL) cells REVIEWED BY (test code=REVIEW) PATHOLOGIST SPECIMEN COMMENTS: RIGHT PLEURAL FLUIDSPECIMEN COMMENTS: RIGHT PLEURAL FLUID. PLEURAL FLD [id number] 13:43:00* Test Item Value Reference Range Comments PLEURAL FLD PH (test code=PHPL) SPECIMEN COMMENTS: RIGHT PLEURAL FLUIDSPECIMEN COMMENTS: RIGHT PLEURAL FLUID. PLEURAL FLD [id number] 13:43:00* Test Item Value Reference Range Comments PLEURAL FLD GLUCOSE (test code=GLUPL) MG/DL SPECIMEN COMMENTS: RIGHT PLEURAL FLUIDSPECIMEN COMMENTS: RIGHT PLEURAL FLUID. PLEURAL FLD TOTAL [id number] 13:43:00* Test Item Value Reference Range Comments PLEURAL FLD TOTAL PROTEIN (test code=PROTPL) gram/dL SPECIMEN COMMENTS: RIGHT PLEURAL FLUIDSPECIMEN COMMENTS: RIGHT PLEURAL FLUID. PLEURAL FLD [id number] 13:43:00* Test Item Value Reference Range Comments PLEURAL FLD LDH (test code=LDHPL) IUnit/L SPECIMEN COMMENTS: RIGHT PLEURAL FLUIDSPECIMEN COMMENTS: RIGHT PLEURAL FLUID. PLEURAL FLD [id number] 13:43:00* Test Item Value Reference Range Comments PLEURAL FLD CHOLESTEROL (test code=CHOLPL) MG/DL SPECIMEN COMMENTS: RIGHT PLEURAL FLUIDSPECIMEN COMMENTS: RIGHT PLEURAL FLUID. PLEURAL FLD [id number] 13:43:00* Test Item Value Reference Range Comments PLEURAL FLD TRIGLYCERIDE (test code=TRIGPL) MG/DL SPECIMEN COMMENTS: RIGHT PLEURAL FLUIDSPECIMEN COMMENTS: RIGHT PLEURAL FLUID.- XR CHEST 1 [id number] 12:19:00 FAX: Sofie Ordoñez MD [phone] [place]: B St: [facility] FAX: Michael Ellis MD [phone] Name: JUSTIN BURRIS [facility] : 1960 Age/S: 57/F [address] Unit #: [id number] Loc: V.2050 [place] [address] Phys: Immanuel Hawk MD Acct: [id number] Dis Date: Status: ADM IN PHONE #: [phone] Exam Date: 03/03/2018 1208 FAX #: [phone] Reason: S/P BILATERAL THORACENTESIS EXAMS: CPT CODE: [id number] XR CHEST 1 V 26716 HISTORY: Post bilateral thoracentesis. COMPARISON: February 27, 2018. No pneumothorax after bilateral thoracentesis. Trace basilar effusions. No infiltrates or congestion. Dependent changes. Cardiomegaly. IMPRESSION: No pneumothoraces after bilateral thoracentesis. at 5838 Reported and signed by: Roshan Figueroa M.D. CC: Sofie Blood MD; Michael Romo MD Technologist: ROSALINDA SAAB JR Trnmtrd Date/Time/By: 03/03/2018 (3477) : By: [email or web address] Orig Print D/T: S: 03/03/2018 (4073) PAGE 1 Signed Report [id number] 05:57:00* Test Item Value Reference Range Comments GLUBED (test code=GLUBED) 180 mg/dL 74-106 Performed by certified charm filter operator helper at [facility] PROTHROMBIN [id number] 05:41:00* Test Item Value Reference Range Comments PROTHROMBIN TIME PATIENT (test code=PTP) 11.6 seconds 9.0-14.0 INTERNATIONAL NORMAL RATIO (test code=INR) 1.0 0.8-1.2 The therapeutic range for oral anticoagulant therapy formost indications is an international normalized ratio (INR)of between 2.0 and 3.0. The recommended therapeutic INRrange for various clinical situations is listed below: Clinical Situation INR range Pulmonary e mbolism treatment (2.0-3.0)Venous thrombosis treatmentVenous thrombosis prophylaxis (high risk surgery)Prevention of systemic embolism from: Acute myocardial infarction Valvular heart disease Atrial fibrillation Mechanical prosthetic heart valves (2.5-3.5) IS PATIENT ON ANTICOAGULANTS? YLIST ANTICOAGULANTS ASPIRINCOMMENTS TO PHLEBO TOMIST: NEED BEFORE FOR PROCEDURECOMMENTS TO DIP BRAZIER: NEED BEFORE PROCEDURE THROMBOPLASTIN TIME [id number] 05:41:00* Test Item Value Reference Range Comments THROMBOPLASTIN TIME PARTIAL (test code=PTT) 29.0 seconds 25.0-36.5 IS PATIENT ON ANTICOAGULANTS? YLIST ANTICOAGULANTS ASPIRINCOMMENTS TO PHLEBO TOMIST: NEED BEFORE FOR PROCEDURECOMMENTS TO DIP BRAZIER: NEED BEFORE PROCEDURE [id number] 20:26:00* Test Item Value Reference Range Comments GLUBED (test code=GLUBED) 279 mg/dL 74-106 Performed by certified charm filter operator helper at [facility] URINALYSIS [id number] 11:55:00* Test Item Value Reference Range Comments UA COLOR (test code=COLU) LIGHT YELLOW YELLOW UA APPEARANCE (test code=APPU) CLEAR CLEAR UA GLUCOSE DIPSTICK (test code=DGLUU) >=500 mg/dL NEGATIVE UA BILIRUBIN DIPSTICK (test code=BILU) NEGATIVE mg/dL NEGATIVE UA KETONE DIPSTICK (test code=KETU) Negative mg/dL NEGATIVE UA SPECIFIC GRAVITY (test code=SGU) 1.014 1.001-1.035 UA BLOOD DIPSTICK (test code=SOILA) Negative NEGATIVE UA PH DIPSTICK (test code=RALEIGH) 7.0 5.0-8.0 UA PROTEIN DIPSTICK (test code=PROU) >500 (3+) mg/dL NEGATIVE UA UROBILINIOGEN DIPSTICK (test code=URO) NEGATIVE mg/dL NEGATIVE UA NITRITE DIPSTICK (test code=LISA) NEGATIVE NEGATIVE UA LEUKOCYTE ESTERASE W REFLEX (test code=LEUUR) NEGATIVE NEGATIVE UA WBC (test code=WBCU) 11-20 #/HPF 0-5 UA RBC (test code=RBCU) 0-2 #/HPF 0-5 UA EPITHELIAL CELLS (test code=EPIU) FEW per HPF FEW UA BACTERIA (test code=BACU) FEW #/HPF NONE UA MUCUS (test code=MUCU) FEW #/LPF FEW Urine Source? CatheterURINALYSIS [id number] 11:52:00* Test Item Value Reference Range Comments UA COLOR (test code=COLU) LIGHT YELLOW YELLOW UA APPEARANCE (test code=APPU) CLEAR CLEAR UA GLUCOSE DIPSTICK (test code=DGLUU) >=500 mg/dL NEGATIVE UA BILIRUBIN DIPSTICK (test code=BILU) NEGATIVE mg/dL NEGATIVE UA KETONE DIPSTICK (test code=KETU) Negative mg/dL NEGATIVE UA SPECIFIC GRAVITY (test code=SGU) 1.014 1.001-1.035 UA BLOOD DIPSTICK (test code=SOILA) Negative NEGATIVE UA PH DIPSTICK (test code=RALEIGH) 7.0 5.0-8.0 UA PROTEIN DIPSTICK (test code=PROU) >500 (3+) mg/dL NEGATIVE UA UROBILINIOGEN DIPSTICK (test code=URO) NEGATIVE mg/dL NEGATIVE UA NITRITE DIPSTICK (test code=LISA) NEGATIVE NEGATIVE UA LEUKOCYTE ESTERASE W REFLEX (test code=LEUUR) NEGATIVE NEGATIVE UA WBC (test code=WBCU) per HPF 0-5 Urine Source? CatheterBASIC METABOLIC [id number] 09:06:00* Test Item Value Reference Range Comments SODIUM (test code=NA) 138 mmol/L 136-145 POTASSIUM (test code=K) 4.8 mmol/L 3.5-5.1 CHLORIDE (test code=CL) 105.0 mmol/L 98-107 CARBON DIOXIDE (test code=CO2) 25.0 mmol/L 21-32 ANION GAP (test code=GAP) 12.8 10-20 GLUCOSE (test code=GLU) 153 mg/dL 74-106 BLOOD UREA NITROGEN (test code=BUN) 65 mg/dL 7-18 GLOMERULAR FILTRATION RATE (test code=GFR) 7 mL/min >=60 Estimated GFR by using Modified MDRD formula.Chronic kidney disease is defined as either kidney damageor GFR <60 mL/min/1.73 m2 for >3 months. CREATININE (test code=CREAT) 6.20 mg/dL 0.55-1.02 Note change in reference range due to change in reagent. BUN/CREATININE RATIO (test code=BUN/CREA) 10.4 10-20 CALCIUM (test code=CA) 7.5 mg/dL 8.5-10.1 [id number] 22:27:00* Test Item Value Reference Range Comments GLUBED (test code=GLUBED) 127 mg/dL 74-106 Performed by certified charm filter operator helper at [facility] [id number] 17:30:00* Test Item Value Reference Range Comments GLUBED (test code=GLUBED) 153 mg/dL 74-106 Performed by certified charm filter operator helper at [facility] [id number] 11:36:00* Test Item Value Reference Range Comments GLUBED (test code=GLUBED) 229 mg/dL 74-106 Performed by certified charm filter operator helper at [facility] [id number] 11:59:00* Test Item Value Reference Range Comments GLUBED (test code=GLUBED) 178 mg/dL 74-106 Performed by certified charm filter operator helper at [facility] [id number] 07:26:00 Name: JUSTIN BURRIS [facility] : 1960 Age/S: 57 / F [address] Unit #: [id number] Loc: [place] [address] Phys: Feng Acevedo MD Acct: [id number] Dis Date: Status: ADM IN PHONE #: [phone] Exam Date: 02/28/2018 0416 FAX #: [phone] Reason: pleural effusion EXAMS: CPT CODE: [id number] CHST W/MEDIASTINUM 36563 EXAM: Ultrasound of the chest; INFORMATION: Shortness of breath, pleural effusions; IMPRESSION: There are moderate bilateral pleural effusions. at 0726 Reported and signed by: Keegan Quigley M.D. CC: Sofie Blood MD; Michael Romo MD; Feng Acevedo MD Technologist: CARISA ELDER [facility]A [facility] Date/Time: 02/28/2018 (0726) [email or web address] Orig Print D/T: S: 02/28/2018 (0729) Probe: PAGE 1 Signed Report GLUBED 2018-02-28 07:16:00* Test Item Value Reference Range Comments GLUBED (test code=GLUBED) 158 mg/dL 74-106 Performed by certified charm filter operator helper at [facility] [id number] 21:47:00* Test Item Value Reference Range Comments GLUBED (test code=GLUBED) 247 mg/dL 74-106 [facility]~ [id number] 16:44:00* Test Item Value Reference Range Comments GLUBED (test code=GLUBED) 168 mg/dL 74-106 Performed by certified charm filter operator helper at [facility] - XR CHEST 2 [id number] 16:16:00 FAX: Sofie Ordoñez MD [phone] [place]: St: ADM FAX: Michael Ellis MD [phone] FAX: Kalina Hernandez [phone] Name: BURRISJUSTIN SILVA [facility] : 1960 Age/S: 57/F [address]: [id number] Loc: V.2050 [place] [address] Phys: Kalina Solis MD Acct: [id number] Dis Date: Status: ADM IN ONE #: [phone] Exam Date: 02/27/2018 1614 FAX #: [phone] Reason: Evaluate Tom Pleural effuions EXAMS: CPT CODE: [id number] XR CHEST 2 V 60533 REASON FOR EXAM: Evaluate Tom Pleural effuions Exam Order Date: 02/27/19 19 12:00 AM Ordering Rohit: Kalina Solis MD PROCEDURE: - XR CHEST 2 V COMPARISON: 02/24/2018 FINDINGS: PA and lateral views of the chest show the heart size is within normal limits. Pulmonary vasculatures are unremarkable. The osseous struc tures are grossly intact. Stable appearance of the right IJ dialysis gale ter. IMPRESSION: Patchy atelectasis or consolidation of the left base with mild bilateral pleural effusions. at 1616 Reported an d signed by: Immanuel Hawk M.D. CC: Sofie Blood MD; Maya Romo MD; Kalina Solis MD Technologist: Julisa Amaro RT(R) Trnscrd Date/Time/By: 02/27/2018 (7781) : By: HarrisonVTL Orig Print D/T: S: 02/27/2018 (6672) PAGE 1 Signed Report [id number] 11:42:00 * Test Item Value Reference Range Comments GLUBED (test code=GLUBED) 234 mg/dL 74-106 Performed by certified charm filter operator helper at [facility] [id number] 11:42:00* Test Item Value Reference Range Comments GLUBED (test code=GLUBED) 128 mg/dL 74-106 Performed by certified charm filter operator helper at [facility] BASIC METABOLIC [id number] 10:21:00* Test Item Value Reference Range Comments SODIUM (test code=NA) 136 mmol/L 136-145 POTASSIUM (test code=K) 4.5 mmol/L 3.5-5.1 CHLORIDE (test code=CL) 104.0 mmol/L 98-107 CARBON DIOXIDE (test code=CO2) 28.0 mmol/L 21-32 ANION GAP (test code=GAP) 8.5 10-20 GLUCOSE (test code=GLU) 235 mg/dL 74-106 BLOOD UREA NITROGEN (test code=BUN) 54 mg/dL 7-18 GLOMERULAR FILTRATION RATE (test code=GFR) 8 mL/min >=60 Estimated GFR by using Modified MDRD formula.Chronic kidney disease is defined as either kidney damageor GFR <60 mL/min/1.73 m2 for >3 months. CREATININE (test code=CREAT) 5.40 mg/dL 0.55-1.02 Note change in reference range due to change in reagent. BUN/CREATININE RATIO (test code=BUN/CREA) 10.0 10-20 CALCIUM (test code=CA) 7.2 mg/dL 8.5-10.1 BASIC METABOLIC [id number] 10:16:00* Test Item Value Reference Range Comments SODIUM (test code=NA) 136 mmol/L 136-145 POTASSIUM (test code=K) 4.5 mmol/L 3.5-5.1 CHLORIDE (test code=CL) 104.0 mmol/L 98-107 CARBON DIOXIDE (test code=CO2) mmol/L 21-32 ANION GAP (test code=GAP) 10-20 GLUCOSE (test code=GLU) mg/dL 74-106 BLOOD UREA NITROGEN (test code=BUN) mg/dL 7-18 GLOMERULAR FILTRATION RATE (test code=GFR) mL/min >=60 CREATININE (test code=CREAT) mg/dL 0.55-1.02 BUN/CREATININE RATIO (test code=BUN/CREA) 10-20 CALCIUM (test code=CA) mg/dL 8.5-10.1 CBC W/AUTO [id number] 09:46:00* Test Item Value Reference Range Comments WHITE BLOOD CELL (test code=WBC) 9.6 K/mm3 4.5-12.5 RED BLOOD CELL (test code=RBC) 3.55 mill/mm3 3.7-5.2 HEMOGLOBIN (test code=HGB) 10.1 gram/dL 11.5-15.5 HEMATOCRIT (test code=HCT) 32.7 % 36.0-46.0 MEAN CELL VOLUME (test code=MCV) 92.1 fL 80-98 MEAN CELL HGB (test code=MCH) 28.5 picogram 27.0-33.0 MEAN CELL HGB CONCETRATION (test code=MCHC) 30.9 gram/dL 33.0-36.0 RED CELL DISTRIBUTION WIDTH (test code=RDW) 14.0 % 11.6-16.2 RED CELL DISTRIBUTION WIDTH SD (test code=RDW-SD) 45.5 fL 37.0-51.0 PLATELET COUNT (test code=PLT) 202 K/mm3 150-450 MEAN PLATELET VOLUME (test code=MPV) 9.8 fL 6.7-11.0 NEUTROPHIL % (test code=NT%) 62.6 % 39.0-69.0 IMMATURE GRANULOCYTE % (test code=IG%) 0.6 % 0.0-5.0 LYMPHOCYTE % (test code=LY%) 19.4 % 25.0-55.0 MONOCYTE % (test code=MO%) 8.8 % 0.0-10.0 EOSINOPHIL % (test code=EO%) 8.0 % 0.0-5.0 BASOPHIL % (test code=BA%) 0.6 % 0.0-1.0 NUCLEATED RBC % (test code=NRBC%) 0.5 % 0-0 NEUTROPHIL # (test code=NT#) 6.03 K/mm3 1.8-7.7 IMMATURE GRANULOCYTE # (test code=IG#) 0.06 x10 3/uL 0-0.03 LYMPHOCYTE # (test code=LY#) 1.87 K/mm3 1.0-5.0 MONOCYTE # (test code=MO#) 0.85 K/mm3 0-0.8 EOSINOPHIL # (test code=EO#) 0.77 K/mm3 0.0-0.5 BASOPHIL # (test code=BA#) 0.06 K/mm3 0.0-0.2 NUCLEATED RBC # (test code=NRBC#) 0.05 K/mm3 0.0-0.1 MANUAL DIFF REQUIRED (test code=MDIFF) NO [id number] 22:05:00* Test Item Value Reference Range Comments GLUBED (test code=GLUBED) 214 mg/dL 74-106 Performed by certified charm filter operator helper at [facility] [id number] 17:40:00* Test Item Value Reference Range Comments GLUBED (test code=GLUBED) 328 mg/dL 74-106 Performed by certified charm filter operator helper at [facility] [id number] 17:40:00* Test Item Value Reference Range Comments GLUBED (test code=GLUBED) 254 mg/dL 74-106 Performed by certified charm filter operator helper at [facility]
[2019-01-14 08:57] VITALS: BP 141/63
== END | disposition home or self-care (01) ==
LOC: OR 06:38
PROVIDERS: ATTEND Internal Medicine Gastroenterology
DX: K29.50 Unspecified chronic gastritis without bleeding (principal); K21.0 Gastro-esophageal reflux disease with esophagitis; K44.9 Diaphragmatic hernia without obstruction or gangrene; I10 Essential (primary) hypertension; E11.9 Type 2 diabetes mellitus without complications; F17.210 Nicotine dependence, cigarettes, uncomplicated; Z01.810 Encounter for preprocedural cardiovascular examination; Z01.812 Encounter for preprocedural laboratory examination
CPT/HCPCS: 36415 ×2; 43239; 82948; 85025; 93005; J2250; J2704; J3010; J7040; 43235